=== PATIENT | male | born 1950 | race Caucasian/White ===

== ENCOUNTER → 2016-06-22 | Outpatient (CLI) | payer OTHER, MEDICARE ==
[~2016-06-22] VITALS: Ht 170.2 cm; Wt 117.0 kg
[~2016-06-22] MED LIST: ALEVE220 MG PO; ALPRAZOLAM 0.50.5 M1 PO; ALPRAZOLAM 0.50.5 MG PO; ASPIRIN81 M2 PO; BENICAR HCT 201 EACH PO; BYSTOLIC 5 MG5 M1; BYSTOLIC 5 MG5 M1 PO; CARVEDILOL25 MG PO; CIPROFLOXACIN500 M1 PO; COUMADIN 5 MG TA5 M1; COUMADIN7.5 MG PO; DESYREL50 MG PO; DICLOFENAC SODI75 M2 PO; DILAUDID1 MG/1 ML; DIURETIC RX; ENOXAPARIN100 MG/1 M INJECTION; ENOXAPARIN120 MG/0.1 SUBQ; FISH OIL 1,001000 M2; FLOMAX PO; FLONASE 0.05%50 MCG NASAL; FUROSEMIDE 40 M40 M1 PO; HYDROCODON-ACE1 EAC5 PO; IBUPROFEN 800800 MG PO; INTRATHECAL MED; KEFLEX500 MG PO; KLOR-CON 1010 MEQ PO; KLOR-CON M2020 MEQ PO; LEVAQUIN 500 M500 M2 PO; LISINOPRIL10 MG PO; LORTAB 5 MG/5001 TA1 PO; LUBRICANT EYE D15 M2 OPHTHALMIC; METHOCARBAMOL500 M1 PO; MORPHINE PAIN PUMP IMPLANT; MULTIVITAMINS PO; MULTIVITAMINS1 EAC7 PO; NORCO 5-325 TA1 EACH PO; OMEPRAZOLE40 MG PO; OXYCODONE-ACET1 EAC2 PO; OXYCODONE-ACET1 EACH PO; OXYCONTIN20 MG; PERCOCET 10-321 EACH PO; PERCOCET 5-3251 EACH PO; POTASSIUM GLUCO90 MG PO; PRILOSEC 20 MG20 MG PO; PROAIR HFA8.5 GM INH; RESTORIL15 MG PO; SILDENAFIL20 MG PO; SINGULAIR 10 MG10 M1 PO; STOOL SOFTENER1 EAC2 PO; SYMBICORT160 MCG/4. INH; SYNTHROID50 MCG PO; TAMSULOSIN HCL0.4 M1 PO; TAMSULOSIN HCL0.4 MG PO; TESTONE CI200 MG/1 M; TESTOSTERONE INJECT; TOPROL XL50 MG; TOPROL XL50 MG PO; TORSEMIDE20 MG PO; TRAMADOL 50 MG50 MG PO; TRIAMTERENE-HC1 EAC1 PO; TYLENOL P.M. E1 EAC3; VIACTIV TABLET1 EAC2 PO; VITAMINC500 PO; WARFARIN PO; [UNRECOGNIZED DRUG - SUPPLY]
--- NOTE | ~2016-06-22 | HPC ---
[facility] [place] [address] PAIN MANAGEMENT CONSULTATION Name: TAINA BIRCH Room #: [facility] [id number] Admission: 06/22/16 Attend Phys: Deep Morataya MD Discharge: Date of : 50 Report #: [id number] THIS REPORT FOR: //name// CC: Jase Morataya DATE OF SERVICE: 06/22/2016 The patient returns to the pain clinic today for refill of his intrathecal infusion pump. He has chronic low back pain and the medication has been helpful. He also complains of neuropathy in his lower extremities. He may have some component of radiculopathy as well since the pain radiates from his back down through his legs. He is not currently on an anti-seizure medication. He has a sleep study upcoming as well. He has sleep apnea and COPD as well as cor pulmonale. MEDICATIONS: Potassium, oxycodone one tablet for breakthrough pain use sparingly, albuterol, Symbicort, Singulair, Zestril, Coreg, Coumadin, multivitamins, stool softener, vitamin C, omeprazole, and Synthroid. ALLERGIES: TAPE, CONTRAST MEDIA. PHYSICAL EXAMINATION: He is obese, pleasant, alert and oriented. No signs of depression or anxiety. Blood pressure , heart rate 70, respirations 20. He is 5 feet, 7 inches, 258 pounds with a BMI of 40.4. Moves from sitting to standing position, ambulates without difficulty. MUSCULOSKELETAL: He has limited range of motion of the lumbar spine with localized tenderness. Straight leg raising bilaterally reproduces some discomfort in the legs with tightness. There is some decreased sensation in the lower extremities. IMPRESSION: 1. Chronic intractable low back pain with radiculopathy. 2. Management of intrathecal infusion pump. 3. Cor pulmonale. 4. Sleep apnea. 5. Obesity. PROCEDURE: Refill and reprogramming of intrathecal infusion pump. Skin was prepped with ChloraPrep. Skin anesthetized and a 22-gauge non-coring needle advanced in the pump. Old medication removed and discarded. Pump was refilled with 20 mL of a combination of bupivacaine and hydromorphone. [facility] [address] [place] [address] PAIN MANAGEMENT CONSULTATION Name: TAINA BIRCH Room #: REG [facility].#: [id number] Admission: 06/22/16 Attend Phys: Deep Morataya MD Discharge: Date of : 50 Report #: [id number] Reprogramming session was performed. Reprogramming of his next refill is scheduled due in 10/2016. <ELECTRONICALLY SIGNED> By: Deep Morataya MD 06/24/16 1329 1642 32 Deep Morataya MD /nt
[2016-06-22 14:30] VITALS: BP 162/92
== END ==
LOC: PAIN 07:42
DX: M54.10 Radiculopathy, site unspecified (principal); E66.9 Obesity, unspecified; Z87.891 Personal history of nicotine dependence

== ENCOUNTER → 2016-06-23 | Outpatient (CLI) | payer OTHER, MEDICARE ==
--- NOTE | ~2016-06-23 | SLE ---
[facility] [address] [place] [address] POLYSOMNOGRAPHY STUDY Name: TAINA BIRCH Room #: REG [facility]#: [id number] Admission: 06/23/16 Attend Phys: Jamarcus Ruffin MD Discharge: Date of : 50 Report #: [id number] THIS REPORT FOR: //name// CC: Jase Ruffin MD A 65-year-old, height 5 feet 7 inches, weight 250 pounds, not getting a good night sleep with CPAP. Usually goes to bed at 10:30, gets out of bed at 6:00 a.m., does not feel refreshed. Positive snoring and daytime somnolence. COMMENTS: CPAP TITRATION: Titrated at 10, 12, 13 and 14 cm water pressure. At 12 cm water pressure, the patient was seen for 99 minutes of which 15 minutes was in REM sleep, 6 central apnea, 2 hypopnea, apnea-hypopnea index of 4.8 events per sleep hour. Low oxygen saturation of 88%. IMPRESSION: 1. History of obstructive sleep apnea/hypopnea, G47.33. His study from 2013 had shown an apnea-hypopnea index of 31 events per sleep hour, low oxygen saturation 84%. 2. No significant arrhythmia noted. 3. CPAP improves index, however, does not totally correct events. SUGGESTIONS: 1. In addition to specific therapy, the patient should be cautioned regarding driving or operating dangerous machinery unless fully alert. The patient will be cautioned regarding the use of respiratory depressants. 2. Sleep hygiene measures recommended. 3. Oral appliance or appropriate surgery may be considered with appropriate followup. 4. An auto titrating CPAP between 10 and 16 cm water pressure is initially recommended. During our study, a medium Marco A 2 nasal mask was used with a chinstrap and heated humidity and C-Flex of 3. 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 5. If signs and symptoms not improved with therapy, further evaluation is recommended. Please do not hesitate to contact me if I may be of further assistance. <ELECTRONICALLY SIGNED> By: Bhavani Ziegler MD 06/28/16 1705 1757 1710 Bhavani Ziegler MD /nt
== END ==
LOC: SLEEPLAB 17:53
DX: G47.33 Obstructive sleep apnea (adult) (pediatric) (principal)

== ENCOUNTER → 2016-11-03 | Outpatient (CLI) | payer OTHER, MEDICARE ==
[~2016-11-03] VITALS: Ht 170.2 cm; Wt 122.1 kg
[~2016-11-03] MED LIST changes: +ALBUTEROL2.5 MG/31 INH; +AMLODIPINE BESY10 MG PO; +COUMADIN 1MG TAB1 M1 PO; +FINASTERIDE5 MG PO; +FISH OIL 1,2001 EAC6 PO; +HYDROCODONE-AP1 EAC6 PO; +K-DUR 20 MEQ T20 MEQ PO; +PERFOROMIS20 MCG/2 M IH; -TESTONE CI200 MG/1 M; +TESTONE CI200 MG/1 M IM; +XANAX 0.25 MG0.25 MG PO
--- NOTE | ~2016-11-03 | HPC ---
[facility] [address] [place] [address] PAIN MANAGEMENT CONSULTATION Name: TAINA BIRCH Room #: REG SUSHMA CarolinaRubi#: [id number] Admission: 11/03/16 Attend Phys: Deep Morataya MD Discharge: Date of : 50 Report #: [id number] THIS REPORT FOR: //name// CC: Jase Morataya DATE OF SERVICE: 11/03/2016 Followup visit for management of intrathecal infusion pump. The patient returns to pain clinic today for refill of his intrathecal infusion pump. He is doing well. He has some comorbidities including sleep apnea, obesity and cor pulmonale. He has been treated also for increasing edema of his lower extremities. Overall, however, his pain is well controlled and he uses only a small amount of supplementary oxycodone. A single prescription for 60 tablets lasted 240 days, so uses no more than 1 tablet every 4 days as breakthrough. Today, he reports that his pain is good. He is here only for his refill. No other new symptoms. Pain is mostly in his neck, arms and low back. PHYSICAL EXAMINATION: BMI is 42.2, blood pressure is 174/94, heart rate 71, respirations 18. Moves from a sitting to standing position. He ambulates with a mild antalgic features. He has pain across his low back and tenderness. Straight leg raising bilaterally is negative. No focal weakness. There is 1+ edema of the lower extremities. IMPRESSION: 1. Chronic low back pain with radiculopathy. 2. Management of intrathecal infusion pump. 3. Cor pulmonale. 4. Sleep apnea. 5. Morbid obesity. PROCEDURE: Refill and reprogramming of intrathecal pump. Skin was prepped with ChloraPrep, skin anesthetized. A 20-gauge non-coring needle advanced in the pump. Old medication removed and discarded. Pump refilled with a combination of hydromorphone, bupivacaine, and clonidine. We reprogrammed the pump. The concentration of hydromorphone and bupivacaine remained the same. Unfortunately, we neglected to add the clonidine to his programming information. I will change that and will let him know at his next followup visit. He will be receiving 25 mcg of clonidine per day, new drug for lower extremity neuropathy. [address] [address] PAIN MANAGEMENT CONSULTATION Name: TAINA BIRCH BAH Room #: REG [facility] Avril#: [id number] Admission: 11/03/16 Attend Phys: Deep Moartaya MD Discharge: Date of : 50 Report #: [id number] Followup visit is scheduled in 3 months. By: 1253 [id number] Deep Morataya MD /nt
[2016-11-03 09:53] VITALS: BP 174/94
== END ==
LOC: PAIN 06:59
DX: Z45.1 Encounter for adjustment and management of infusion pump (principal); I27.81 Cor pulmonale (chronic); E66.01 Morbid (severe) obesity due to excess calories; Z68.41 Body mass index [BMI] 40.0-44.9, adult; Z79.01 Long term (current) use of anticoagulants; Z87.891 Personal history of nicotine dependence

== ENCOUNTER → 2016-11-17 | Outpatient (CLI) | payer OTHER, MEDICARE | LOC: ULTRA 09:45 | DX: I70.213 Atherosclerosis of native arteries of extremities with intermittent claudication, bilateral legs (principal); I99.8 Other disorder of circulatory system ==

== ENCOUNTER 2017-01-23 11:55 | Inpatient (IN) | payer OTHER, MEDICARE ==
[~2017-01-23] VITALS: Ht 172.7 cm; Wt 113.4 kg
[2017-01-23 11:55] VITALS: BP 181/90
[2017-01-23 12:58] LABS: MCH 26.8 pg (26.0-34.0); MCHC 33.3 g/dL (28.0-37.0); MCV 80.3 fL (80.0-100.0); PLATELET COUNT 218 thou/uL (150-400); RBC 4.86 mil/uL (4.50-6.00); RDW 19.1 % (10.5-14.5)
[2017-01-23 13:06] LABS: CALCIUM 8.9 mg/dL (8.5-10.1); CREATININE 0.9 mg/dL (0.7-1.3); POTASSIUM 4.7 mmol/L (3.5-5.1)
[2017-01-23 13:07] LABS: MANUAL DIFF YES
[2017-01-23 13:12] LABS: ALBUMIN 3.8 g/dL (3.4-5.0); INR 2.1; PROTIME 20.8 Seconds (9.3-11.4); TOTAL BILIRUBIN 0.4 mg/dL (<0.1-1.0); TOTAL PROTEIN 8.5 g/dL (6.4-8.2)
[2017-01-23 13:39] LABS: ABSOLUTE NEUTROPHILS 14.2 thou/uL (1.4-8.2); PLATELET ESTIMATE NORMAL; TOTAL CELL COUNT 100
[2017-01-23 14:31] VITALS: BP 155/75
[2017-01-23 14:40] VITALS: BP 144/73
[2017-01-23 15:15] VITALS: BP 164/74
[2017-01-23 19:45] VITALS: BP 115/58
[2017-01-24 03:43] VITALS: BP 119/59
[2017-01-24 08:45] VITALS: BP 119/54
[2017-01-24 16:27] VITALS: BP 134/60
[2017-01-24 19:22] VITALS: BP 118/63
[2017-01-24 19:45] VITALS: BP 135/81
[2017-01-25 03:22] VITALS: BP 114/58
[2017-01-25] MEDS ORDERED: CEFDINIR300 MG PO (07:49)
[2017-01-25 08:00] VITALS: BP 117/69
[2017-01-25 11:32] VITALS: BP 117/69
[2017-01-25 12:36] VITALS: BP 117/69
== END 2017-01-25 12:51 | disposition home or self-care (01) | DRG 872 ==
LOC: ER 11:55 → EROBS 14:12 → 4S 14:12
PROVIDERS: Physician Assistant
DX: A41.9 Sepsis, unspecified organism (principal); L03.116 Cellulitis of left lower limb; I10 Essential (primary) hypertension; K21.9 Gastro-esophageal reflux disease without esophagitis; I27.2 Other secondary pulmonary hypertension; Z96.653 Presence of artificial knee joint, bilateral; G89.4 Chronic pain syndrome; E66.9 Obesity, unspecified; Z68.38 Body mass index [BMI] 38.0-38.9, adult; Z87.891 Personal history of nicotine dependence; Z85.828 Personal history of other malignant neoplasm of skin; Z90.49 Acquired absence of other specified parts of digestive tract; Z87.01 Personal history of pneumonia (recurrent); Z86.711 Personal history of pulmonary embolism; Z86.718 Personal history of other venous thrombosis and embolism; Z87.828 Personal history of other (healed) physical injury and trauma; Z79.01 Long term (current) use of anticoagulants; Z79.899 Other long term (current) drug therapy; Z91.041 Radiographic dye allergy status; Z91.048 Other nonmedicinal substance allergy status
CPT/HCPCS: 10102

== ENCOUNTER → 2017-03-20 | Outpatient (CLI) | payer OTHER, MEDICARE ==
[~2017-03-20] VITALS: Ht 170.2 cm; Wt 122.5 kg
[~2017-03-20] MED LIST changes: +CEFDINIR300 MG PO; +PERCOCET PO
--- NOTE | ~2017-03-20 | HPC ---
[facility] [address] [address] PAIN MANAGEMENT CONSULTATION Name: TAINA BIRCH Room #: REG [facility] Caity.#: [id number] Admission: 03/20/17 Attend Phys: Deep Morataya MD Discharge: Date of : 50 Report #: [id number] THIS REPORT FOR: //name// CC: Russell Morataya DATE OF SERVICE: 03/20/2017 DATE OF SERVICE: 03/20/2017 Followup visit for low back pain with radiculopathy. HISTORY OF PRESENT ILLNESS: The patient is in the clinic today and he has significant bilateral peripheral edema. We have talked in the past about perhaps transitioning him off of hydromorphone in his intrathecal pump to fentanyl. I have recently had a patient with similar findings and responded very nicely to transition off of morphine-based drug. Edema, which is a possible side effect of these intrathecal opioids, occurs in about 15% on my estimation. He is reporting that they are interventional treatments including possibly some venous studies and surgery. I am not exactly sure what is planned, but before going forward with that surgery, I would recommend that we make the change as soon as possible. He has also had cor pulmonale sleep apnea and has been undergoing pulmonary rehabilitation at [facility]. His pain control has been good, so hopefully we can maintain that with the intrathecal pump while evaluating for side effects. PHYSICAL EXAMINATION: VITAL SIGNS: Blood pressure 158/77, heart rate 74, respirations 18. He is dyspneic on exertion. His oxygen saturation at rest is 97%. BMI is 42. CHEST: Clear. EXTREMITIES: Bilateral 3+ to 4+ lower extremity edema is noted. IMPRESSION: 1. Chronic low back pain with radiculopathy. 2. Management of intrathecal infusion pump. He may be having side effects from his intrathecal hydromorphone with bilateral peripheral edema. 3. Cor pulmonale. 4. Sleep apnea. 5. Morbid obesity. PLAN: I will refill his pump today with medication we have available, order new medication, which we hope to have in the pump within one week. We will then [facility] [address] [place] [address] PAIN MANAGEMENT CONSULTATION Name: TAINA BIRCH Room #: REG Adonis Mackenzie#: [id number] Admission: 03/20/17 Attend Phys: Deep Morataya MD Discharge: Date of : 50 Report #: [id number] evaluate and titrate fentanyl to effect. PROCEDURE: Skin was prepped with ChloraPrep, skin anesthetized and a 22-gauge non-coring needle advanced in the pump. Old medication removed and discarded. Pump was then refilled with a combination of hydromorphone, clonidine and bupivacaine. Reprogramming session was performed without change in daily dose, which is hydromorphone 2.5, bupivacaine 2.5 and clonidine 25. New medication is ordered to transition from hydromorphone 2.5 to fentanyl 125 mcg per day. We may need to adjust this dose upwards to get similar opioid effects. This should be a relatively low dose in comparison. Followup visit planned in 1 week. Time spent in consultation was 25 minutes. By: 1241 1517 Deep Morataya MD /nt
[2017-03-20 10:33] VITALS: BP 158/77
== END ==
LOC: PAIN 07:25
DX: Z45.1 Encounter for adjustment and management of infusion pump (principal); Z68.41 Body mass index [BMI] 40.0-44.9, adult; M54.10 Radiculopathy, site unspecified; E66.01 Morbid (severe) obesity due to excess calories

== ENCOUNTER → 2017-03-27 | Outpatient (CLI) | payer OTHER, MEDICARE ==
[~2017-03-27] VITALS: Ht 172.7 cm; Wt 122.5 kg
[~2017-03-27] MED LIST changes: +PROSCAR 5MG TABL5 MG PO
--- NOTE | ~2017-03-27 | HPC ---
[facility] [address] [place] [address] PAIN MANAGEMENT CONSULTATION Name: TAINA BIRCH Room #: REG SUSHMA MadhuSumanRubi#: [id number] Admission: 03/27/17 Attend Phys: Deep Morataya MD Discharge: Date of : 50 Report #: [id number] THIS REPORT FOR: //name// CC: Russell Morataya DATE OF SERVICE: 03/27/2017 Followup visit for management of intrathecal infusion pump. The patient is here today for changing out his intrathecal medications. He has severe lower extremity edema and we have raised a question of whether or not the intrathecal hydromorphone is the cause. Morphine is usually implicated, hydromorphone has been implicated in some patients. We have had good success in helping with edema by transitioning to fentanyl and is here today to do that. Medication has been ordered. We will keep him on similar doses of bupivacaine and clonidine, but we will discontinue his hydromorphone and start him on fentanyl 150 mcg per day. I elected today to begin at higher dose, so we will not go through withdrawal. We will plan that he can use oral medications if he finds that there is any sort of opioid withdrawal with this transition. PHYSICAL EXAMINATION: There have been no changes in 1 week. His blood pressure is 135/88, heart rate is 80, respirations 16. He has 3+ edema of the lower extremities. IMPRESSION: 1. Chronic intractable low back pain with radiculopathy. 2. Management of intrathecal infusion pump. 3. Cor pulmonale. 4. Sleep apnea. 5. Morbid obesity. 6. Peripheral edema, possibly secondary to intrathecal hydromorphone. PROCEDURE: Skin was prepped with ChloraPrep. Skin anesthetized and a 22-gauge non-coring needle advanced in the pump. Old medication was removed and discarded appropriately. The pump was then refilled with fentanyl, bupivacaine and clonidine and new daily doses were reprogrammed into the pump including a bridge bolus. At the conclusion of 96 hours, his new drug will be fentanyl 150 mcg per day, bupivacaine 3 mg a day, clonidine ____ mcg per day. The reservoir alarm will allow for 91 days. We will be discussing this with him on the phone. By: 1401 1445 Deep Morataya MD /nt
[2017-03-27 08:05] VITALS: BP 154/85
== END | disposition home or self-care (01) ==
LOC: PAIN 06:55
DX: Z45.1 Encounter for adjustment and management of infusion pump (principal); E66.01 Morbid (severe) obesity due to excess calories; R60.9 Edema, unspecified; Z87.891 Personal history of nicotine dependence

== ENCOUNTER → 2017-05-18 | Outpatient (CLI) | payer OTHER, MEDICARE ==
[~2017-05-18] VITALS: Ht 172.7 cm; Wt 122.7 kg
[~2017-05-18] MED LIST changes: +CYCLOBENZAPRINE5 MG PO; +DILAUDID1 MG/1 ML IV PUSH
--- NOTE | ~2017-05-18 | HPC ---
[facility] [address] [place] [address] PAIN MANAGEMENT CONSULTATION Name: TAINA BIRCH Room #: REG SUSHMA Avril#: [id number] Admission: 05/18/17 Attend Phys: Deep Morataya MD Discharge: Date of : 50 Report #: [id number] THIS REPORT FOR: //name// CC: Jase Morataya DATE OF SERVICE: 05/18/2017 Followup visit for chronic back pain, post-laminectomy syndrome and management of intrathecal infusion pump. The patient returns to the pain clinic today for renewal of his intrathecal infusion pump and refill. We have been managing his medications differently with the hopes of eliminating some of his edema in the lower extremities. We have had some improvement. Today we plan to decrease his bupivacaine and increase his clonidine in hopes to eliminate some of the neuropathic symptoms. PHYSICAL EXAMINATION: GENERAL: He is pleasant and outgoing. Breathing is easy. CHEST: Clear. CARDIAC: Rhythm is regular. VITAL SIGNS: Blood pressure 154/86, heart rate 70 and respirations 20. MUSCULOSKELETAL: He has tenderness across his low back with pain on flexion and extension. Straight leg raising reproduces some mild pain into the legs. Bilateral numbness is noted. 2-3+ edema bilateral lower extremities. IMPRESSION: 1. Chronic low back pain with radiculopathy. 2. Management of intrathecal infusion pump. 3. Peripheral edema with cor pulmonale. 4. Morbid obesity. PROCEDURE: Refill and reprogram intrathecal infusion pump. Skin was prepped with ChloraPrep. Skin anesthetized and a 22-gauge non-coring needle advanced in the pump. Old medication removed and discarded. Pump was then refilled with a combination of bupivacaine, clonidine and fentanyl. Reprogramming will provide for 225 mcg of fentanyl, 300.3 of bupivacaine and 45 mcg of clonidine. A bridge bolus was performed which will last 31 hours. Plan to see him back in the pain clinic in 77 days before 08/03/2017. By: 1023 0212 Deep Morataya MD /nt
[2017-05-18 10:08] VITALS: BP 154/86
== END | disposition home or self-care (01) ==
LOC: PAIN 05-15 15:04
DX: Z45.1 Encounter for adjustment and management of infusion pump (principal); M54.16 Radiculopathy, lumbar region; G89.29 Other chronic pain; M96.1 Postlaminectomy syndrome, not elsewhere classified; I27.81 Cor pulmonale (chronic); E66.01 Morbid (severe) obesity due to excess calories; Z87.891 Personal history of nicotine dependence; Z91.041 Radiographic dye allergy status; Z79.01 Long term (current) use of anticoagulants; Z79.891 Long term (current) use of opiate analgesic; Z79.899 Other long term (current) drug therapy

== ENCOUNTER 2017-05-21 12:54 | Inpatient (IN) | payer OTHER, MEDICARE ==
[~2017-05-21] VITALS: Ht 170.2 cm; Wt 120.2 kg
--- NOTE | ~2017-05-21 | EKG ---
[address] [place] [address] ELECTROCARDIOGRAM REPORT Name: TAINA BIRCH [facility] #: [facility] [id number] Admission: 05/21/17 Attend Phys: Discharge: Date of : 50 Report #: [id number] THIS REPORT FOR: //name// [facility] ED Test Date: 2017-05-21 Test Time: 13:33:41 Pat Name: TAINA BIRCH Department: Room: Gender: M Rabbit Breeder: [id number] : 1950 Requested By: Evelyn Okeefe Order Number: [id number] MD: Deonte Bhandari Measurements Intervals [place] Rate: 79 P: 56 SC: 160 QRS: -1 QRSD: 99 T: 9 QT: 382 QTc: 438 Interpretive Statements Sinus rhythm Probable left atrial enlargement Nonspecific T abnormalities, anterior leads Compared to ECG 09/24/2016 21:50:21 T-wave abnormality now present Myocardial infarct finding no longer present Electronically Signed On 05-21-2017 16:11:56 LICENSED OPTICIAN by Deonte Bhandari [email or web address] <ELECTRONICALLY SIGNED> By: Deonte Bhandari MD 05/21/17 1611 1333 1333 Deonte Bhandari MD /RAD
[~2017-05-21 12:54] MED LIST changes: -CYCLOBENZAPRINE5 MG PO; -DILAUDID1 MG/1 ML IV PUSH
[2017-05-21 13:02] VITALS: BP 193/112
[2017-05-21] MEDS ORDERED: DILAUDID1 MG/1 ML IV PUSH (13:11)
[2017-05-21 13:33] LABS: HEMATOCRIT 41.2 % (42.0-52.0); HEMOGLOBIN 13.4 gm/dL (14.0-18.0); MCHC 32.4 g/dL (28.0-37.0); MCV 83.2 fL (80.0-100.0); PLATELET COUNT 264 thou/uL (150-400); RBC 4.95 mil/uL (4.50-6.00); RDW 14.7 % (10.5-14.5)
[2017-05-21 13:36] LABS: ANION GAP 4 mmol/L (7-16); BUN 8 mg/dL (7-18); CALCIUM 9.2 mg/dL (8.5-10.1); CHLORIDE 100 mmol/L (98-107); CO2 27 mmol/L (21-32); CREATININE 0.7 mg/dL (0.7-1.3); GLUCOSE 130 mg/dL (74-106); POTASSIUM 3.6 mmol/L (3.5-5.1); SODIUM 131 mmol/L (136-145)
[2017-05-21 13:37] LABS: MANUAL DIFF YES
[2017-05-21 13:45] LABS: TROPONIN-I < 0.04 ng/mL (<0.06)
[2017-05-21 13:52] LABS: ABSOLUTE NEUTROPHILS 11.8 thou/uL (1.4-8.2); PLATELET ESTIMATE NORMAL; TOTAL CELL COUNT 100
[2017-05-21 13:55] LABS: URINE BILIRUBIN NEGATIVE (Negative); URINE BLOOD TRACE (Negative); URINE COLOR YELLOW; URINE GLUCOSE-RANDOM* NEGATIVE (Negative); URINE KETONES NEGATIVE (Negative); URINE LEUKOCYTES-REFLEX NEGATIVE (Negative); URINE PROTEIN (DIPSTICK) NEGATIVE (Negative); URINE SPECIFIC GRAVITY <= 1.005 (1.005-1.035); URINE UROBILINOGEN 0.2 E.U./dl (0.2-1.0)
[2017-05-21 14:13] LABS: INR 1.2; PROTIME 12.7 Seconds (9.3-11.4)
[2017-05-21 16:38] VITALS: BP 172/85
[2017-05-21 16:58] VITALS: BP 166/83
[2017-05-21 17:34] VITALS: BP 169/92
[2017-05-21 19:08] VITALS: BP 158/93
[2017-05-22 03:51] VITALS: BP 164/76
[2017-05-22 07:15] VITALS: BP 179/102
[2017-05-22 10:36] LABS: MCH 26.9 pg (26.0-34.0); MCHC 32.4 g/dL (28.0-37.0); RBC 4.83 mil/uL (4.50-6.00); RDW 14.6 % (10.5-14.5); WBC 11.8 thou/uL (4.0-11.0)
[2017-05-22 15:35] VITALS: BP 161/100
[2017-05-22 19:29] VITALS: BP 162/89
[2017-05-23 04:15] VITALS: BP 148/85
[2017-05-23] MEDS ORDERED: CYCLOBENZAPRINE5 MG PO (07:32)
[2017-05-23 07:35] VITALS: BP 164/89
[2017-05-23 14:39] VITALS: BP 164/89
== END 2017-05-23 15:20 | disposition home or self-care (01) | DRG 896 ==
LOC: ER 12:54 → 4E 15:40 → EROBS 15:40 → ER 17:00 → 4E 17:29 → ENTRNSPT 05-23 15:13 → EDTRNSPTSTS 05-23 15:16 → 4E 05-23 15:20
PROVIDERS: Emergency Medicine; Family Medicine
DX: F19.939 Other psychoactive substance use, unspecified with withdrawal, unspecified (principal); E43 Unspecified severe protein-calorie malnutrition; Z68.41 Body mass index [BMI] 40.0-44.9, adult; M54.2 Cervicalgia; F11.23 Opioid dependence with withdrawal; Z96.653 Presence of artificial knee joint, bilateral; I10 Essential (primary) hypertension; K21.9 Gastro-esophageal reflux disease without esophagitis; E66.9 Obesity, unspecified; I27.20 Pulmonary hypertension, unspecified; G25.81 Restless legs syndrome; D72.829 Elevated white blood cell count, unspecified; G89.4 Chronic pain syndrome; G62.9 Polyneuropathy, unspecified; Z87.891 Personal history of nicotine dependence; Z91.041 Radiographic dye allergy status; Z88.8 Allergy status to other drugs, medicaments and biological substances; Z79.899 Other long term (current) drug therapy; Z86.718 Personal history of other venous thrombosis and embolism; Z86.711 Personal history of pulmonary embolism; Z90.49 Acquired absence of other specified parts of digestive tract; Z87.01 Personal history of pneumonia (recurrent)
CPT/HCPCS: 10783

== ENCOUNTER → 2017-07-10 | Outpatient (CLI) | payer OTHER, MEDICARE ==
[~2017-07-10] MED LIST changes: +BETAMETHASONE D15 G6 TOP; +CYCLOBENZAPRINE5 MG PO; +DILAUDID1 MG/1 ML IV PUSH; +LUNESTA1 MG PO; +NORVASC10 MG PO; +REQUIP 1 MG TABL1 M1 PO; +SPIRIVA INH
== END ==
LOC: RAD 10:14
DX: M81.8 Other osteoporosis without current pathological fracture (principal); G47.33 Obstructive sleep apnea (adult) (pediatric)

== ENCOUNTER → 2017-08-03 | Outpatient (CLI) | payer OTHER, MEDICARE ==
[~2017-08-03] VITALS: Ht 170.2 cm; Wt 120.8 kg
--- NOTE | ~2017-08-03 | HPC ---
[facility] [place] [address] PAIN MANAGEMENT CONSULTATION Name: TAINA BIRCH Room #: REG SUSHMA Avril#: [id number] Admission: 08/03/17 Attend Phys: Deep Morataya MD Discharge: Date of : 50 Report #: [id number] THIS REPORT FOR: //name// CC: Jase Morataya DATE OF SERVICE: 08/03/2017 Followup visit for management of intrathecal infusion pump with chronic back pain related to post-laminectomy syndrome. The patient is here today for followup. His last refill was on 05/18/2018. He has a combination of bupivacaine, clonidine and fentanyl in his pump. We have transitioned him to fentanyl due to peripheral edema and he is doing a bit better. He continues to have some edema in the lower extremities, which is being managed also by primary care and Cardiology. Today, he feels that his medication is adequate. We will make no changes in his daily dose. Discharge dosing will be described below. PQRS review is completed. He has hypertension and significant cardiopulmonary issues. He is followed by a primary care, Dr. Jase Hi who manages his medication. He is overweight with a BMI of 41.7 and is working hard to try and control his fluids and diet. 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 He takes a small amount of systemic opioids supplement in his intrathecal pump and I have completed an opioid risk tool and functional assessment as well as had him sign an opioid agreement. He has shown no misuse or abuse and understands his responsibilities. He is not currently a fall risk. PHYSICAL EXAMINATION: Blood pressure 152/95, heart rate 75, respirations 16. BMI is 41.7. He walks with antalgic features. He has pain across his low back. He has decreased sensation bilaterally in the lower extremities consistent with post-laminectomy syndrome and sciatica. He has tenderness there as well. There is pain overlying the scar. The pump is in the right lower quadrant, nontender. IMPRESSION: 1. Chronic low back pain with radiculopathy. 2. Management of intrathecal infusion pump. 3. Peripheral edema. 4. History of cor pulmonale. 5. Morbid obesity. PLAN: Refill and reprogramming of intrathecal infusion pump. PROCEDURE: Skin was prepped with ChloraPrep. Skin was anesthetized with 22-gauge non-coring needle advanced in the pump. Old medication removed and [facility] [address] [place] [address] PAIN MANAGEMENT CONSULTATION Name: QUETATAINA NIURKA [facility] [id number] Admission: 08/03/17 Attend Phys: Deep Morataya MD Discharge: Date of : 50 Report #: [id number] discarded. Pump was refilled with a combination of fentanyl, bupivacaine and clonidine and reprogrammed. His discharge numbers will be as follows: Fentanyl 225 mcg per day, bupivacaine 3.3 mg per day, clonidine 45 mcg per day. His low reservoir alarm date is 10/19/2017 and he has an NEAL of 28 months. We discussed replacement of the pump in about 2 years. In addition to his pump medications, he uses over the course of 3 months about 90 oxycodone tablets 10/325, this is MME of 15 mg per day. He uses it sparingly and cautiously with no significant side effects, understands the importance of safeguarding all medications. Followup visit planned in the pain clinic in 2-3 months. <ELECTRONICALLY SIGNED> By: Deep Morataya MD 08/16/17 1640 0954 1126 Deep Morataya MD /nt
[2017-08-03 10:04] VITALS: BP 152/95
== END | disposition home or self-care (01) ==
LOC: PAIN 07:09
DX: Z45.1 Encounter for adjustment and management of infusion pump (principal); M96.1 Postlaminectomy syndrome, not elsewhere classified; I10 Essential (primary) hypertension; I42.9 Cardiomyopathy, unspecified; Z68.41 Body mass index [BMI] 40.0-44.9, adult; E66.01 Morbid (severe) obesity due to excess calories; G89.29 Other chronic pain; M54.10 Radiculopathy, site unspecified; Z87.891 Personal history of nicotine dependence

== ENCOUNTER → 2017-10-02 | Outpatient (CLI) | payer OTHER, MEDICARE ==
[~2017-10-02] VITALS: Ht 170.2 cm; Wt 117.9 kg
[~2017-10-02] MED LIST changes: -LUNESTA1 MG PO; -SPIRIVA INH
--- NOTE | ~2017-10-02 | EKG ---
[address] [place] [address] ELECTROCARDIOGRAM REPORT Name: TAINA BIRCH Room #: REG CLI [facility]#: [id number] Admission: 10/02/17 Attend Phys: Deonte Suarez MD Discharge: Date of : 50 Report #: [id number] THIS REPORT FOR: //name// [facility] Test Date: 2017-10-02 Test Time: 06:58:43 Pat Name: TAINA BIRCH Department: Room: Gender: Regulatory Attorney: Drew COPELAND : 1950 Requested By: Deonte Suarez Order Number: [id number] MD: Marcio Oconnor Measurements Intervals [place] Rate: 82 P: 54 OK: 168 QRS: 4 QRSD: 113 T: 0 QT: 375 QTc: 438 Interpretive Statements Sinus rhythm Atrial premature complex Nonspecific T abnrm, anterolateral leads Compared to ECG 05/21/2017 13:33:41 Atrial premature complex(es) now present Electronically Signed On 10-02-2017 8:13:59 CDT by Marcio Oconnor [email or web address] <ELECTRONICALLY SIGNED> By: Marcio Oconnor MD, [facility] 10/02/17812 0658 Marcio Oconnor MD, [facility] /EPI
--- NOTE | ~2017-10-02 | CATHLAB ---
[facility] [address] [place] [place] [address] INVASIVE PROCEDURE REPORT Name: SEGUNTUANTAINA NIURKA Room #: REG [facility]Rubi[facility] [id number] Admission: 10/02/17 Attend Phys: Deonte Suarez MD Discharge: Date of : 50 Date of Service: 10/02/17 [facility] [place][note 2] Report #: [id number] THIS REPORT FOR: //name// APPROVED REPORT Study performed: 10/02/2017 08:25:46 Patient Details Patient Status: Out-Patient Room #: The patient is a 66 year-old male Event Personnel Deonte Suarez Procedures Nurse, Jimenez Salinas RN, Kimberley Salamanca Scrjeff Procedures Performed Left Heart Cath w/or w/o Coronaries [id number] [facility] Indication Dyspnea, Chest pain Risk Factors Obesity, Chronic Lung DiseaseHypercholesterolemiaPhysical Activity, Hypertension Procedure Narrative The Right Groin^ was infiltrated with 1% Lidocaine subcutaneous anesthesia. A PINNACLE 4FR Sheath #[id number] sheath was inserted into the RFA^. Coronary angiography was performed using coronary diagnostic catheters. The right coronary system was accessed and visualized with a JR4 catheter. The left coronary system was accessed and visualized with a JL5 catheter. The left ventricle was accessed and visualized with a PIGTAIL catheter. Left ventricular/Aortic Valve gradient assessed via catheter pullback. Left ventriculogram was performed in 30 degree projection. Hemostasis was obtained with manual pressure following sheath removal without any complications. There was no hematoma. Intraoperative Conscious Sedation Sedation start time: 8.56 Case end Time: 9.16 Fluoro Time: 2.07 minutes Dose: 738 mGy Contrast Type and Amount: Omnipaque [address] [facility] [address] [place] [address] INVASIVE PROCEDURE REPORT Name: SEGUNTAINA DICKERSON Room #: REG [facility] [id number] Admission: 10/02/17 Attend Phys: Deonte Suarez MD Discharge: Date of : 50 Date of Service: 10/02/17 [facility] [place][note 2] Report #: [id number] Coronary Angiography The patient's coronary anatomy is left dominant. Diagnostic Cath Left Main patent vessel, with no flow-limiting lesions. LAD Moderate size caliber vessel, traveling down the anterior wall and wrapping around the apex. There is a moderate stenosis in the proximal segment, 40-50%. Diagonal 1 Mild disease at the ostium, 30%. Circumflex Patent vessel, supplies 2 OM vessels. OM1 There is mild disease in the proximal segment, 20%. OM2 Patent vessel, with no flow-limiting lesion. Right Coronary Dominant vessel with mild disease in the proximal segment, 20%. R PDA Patent vessel, with no flow-limiting lesion. RPLV Patent vessel, with no flow-limiting lesion. Left Ventriculography The left ventricle is normal in size with normal contractility. The left ventricular ejection fraction is estimated to be 60%. Hemodynamics The aortic pressure is 149/85 mmHg with a mean of 113 mmHg. The left ventricular pressure is 158/17 mmHg with a mean of mmHg. The left ventricular end diastolic pressure is 30 mmHg. Conclusion 1. Nonobstructive coronary artery disease in LAD and RCA. 2. Normal LV systolic function. 3. Recommend risk factor management. <ELECTRONICALLY SIGNED> By: Deonte Suarez MD 10/02/17 1007 1007 1007 Deonte Suarez MD /INF
[2017-10-02 07:14] VITALS: BP 150/81
[2017-10-02 07:53] LABS: PROTIME 10.7 Seconds (9.3-11.4)
== END | disposition home or self-care (01) ==
LOC: CATH 06:32
PROVIDERS: Internal Medicine Cardiovascular Disease
DX: I25.10 Atherosclerotic heart disease of native coronary artery without angina pectoris (principal); I10 Essential (primary) hypertension; I42.9 Cardiomyopathy, unspecified; E78.00 Pure hypercholesterolemia, unspecified; J44.9 Chronic obstructive pulmonary disease, unspecified; K21.9 Gastro-esophageal reflux disease without esophagitis; I73.89 Other specified peripheral vascular diseases; E66.09 Other obesity due to excess calories; Z95.5 Presence of coronary angioplasty implant and graft; Z85.828 Personal history of other malignant neoplasm of skin; Z96.653 Presence of artificial knee joint, bilateral; Z90.49 Acquired absence of other specified parts of digestive tract; Z82.49 Family history of ischemic heart disease and other diseases of the circulatory system; Z87.891 Personal history of nicotine dependence; Z79.01 Long term (current) use of anticoagulants; Z79.899 Other long term (current) drug therapy; Z79.891 Long term (current) use of opiate analgesic; Z98.890 Other specified postprocedural states; Z91.040 Latex allergy status; Z86.718 Personal history of other venous thrombosis and embolism

== ENCOUNTER → 2017-10-05 | Outpatient (CLI) | payer OTHER, MEDICARE ==
[~2017-10-05] VITALS: Ht 170.2 cm; Wt 117.9 kg
--- NOTE | ~2017-10-05 | HPC ---
[facility] [address] [place] [address] PAIN MANAGEMENT CONSULTATION Name: TAINA BIRCH Room #: REG [facility] BárbaraRubiSuman.#: [id number] Admission: 10/05/17 Attend Phys: Deep Morataya MD Discharge: Date of : 50 Report #: [id number] THIS REPORT FOR: //name// CC: Jase Morataya DATE OF SERVICE: 10/05/2017 Followup visit for chronic back pain and cervicalgia with intrathecal pump for chronic management. The patient returns to Pain Clinic today and pleased to report that the increase of 30% in his infusion has made a big difference. His pain is much improved. We plan to refill his intrathecal pump today, continue with the same rate. We may consider increasing the concentrations of his medication for subsequent refills. His interval between refills will now be close to 60 days. We should be able to extend that somewhat safely without compromising ratios and solubilities. We recently changed medication cocktail to fentanyl in order to try and eliminate edema. We have not completely eliminated, but it has much improved. PHYSICAL EXAMINATION: Blood pressure is 135/88, heart rate is 80. He is able to move independently from sitting to standing position, ambulate without much difficulty. He is morbidly obese with BMI over 35. He has tenderness across his low back. Pain with forward flexion and extension. IMPRESSION: 1. Chronic intractable back pain. 2. Intrathecal infusion pump infusing fentanyl, bupivacaine, and clonidine, for refill. PROCEDURE: Refill and reprogramming of intrathecal infusion pump. The skin was prepped with ChloraPrep and anesthetized and a 22-gauge non-coring needle advanced in the intrathecal pump. Old medication was expected at 4.7 mL and we retrieved exactly that. The pump was then refilled with a combination of fentanyl, bupivacaine, clonidine and a daily dose will be as follows, fentanyl 300 mcg, bupivacaine 4.5 mg, and clonidine mcg. Refill interval is now 58 days. Next pump alarm is due on 11/23/2015. We will have him back before that date. Regarding PQRS review, he is not currently receiving other opioids from us and does not have an opioid agreement. All medications were reviewed and [facility] [address] [place] [address] PAIN MANAGEMENT CONSULTATION Name: TAINA BIRCH [facility] [id number] Admission: 10/05/17 Attend Phys: Deep Morataya MD Discharge: Date of : 50 Report #: [id number] reconciled. He is not a fall risk. He does not smoke. He denies use of alcohol. He is on no blood thinners. He has been hypertensive and his blood pressure medication Norvasc has been increased from 5 mg to 10 mg per day. Followup visit for refill in 2 months. By: 1332 24 Deep Morataya MD /nt
[2017-10-05 13:07] VITALS: BP 155/82
== END | disposition home or self-care (01) ==
LOC: PAIN 06:33
DX: Z45.1 Encounter for adjustment and management of infusion pump (principal); E66.01 Morbid (severe) obesity due to excess calories; Z68.35 Body mass index [BMI] 35.0-35.9, adult; Z79.899 Other long term (current) drug therapy; Z87.891 Personal history of nicotine dependence; Z79.01 Long term (current) use of anticoagulants

== ENCOUNTER → 2017-11-30 | Outpatient (CLI) | payer OTHER, MEDICARE ==
[~2017-11-30] VITALS: Ht 170.2 cm; Wt 118.0 kg
[~2017-11-30] MED LIST changes: +LUNESTA1 MG PO
--- NOTE | ~2017-11-30 | HPC ---
[facility] [place] [address] PAIN MANAGEMENT CONSULTATION Name: TAINA BIRCH Room #: REG [facility] Caity.#: [id number] Admission: 11/30/17 Attend Phys: Deep Morataya MD Discharge: Date of : 50 Report #: [id number] THIS REPORT FOR: //name// CC: Jase Morataya DATE OF SERVICE: 11/30/2017 REASON FOR VISIT: Followup visit for management of intrathecal infusion pump and the treatment of chronic low back pain. HISTORY OF PRESENT ILLNESS: Followup visit for the patient who is here today for routine refill of his intrathecal pump. We have reconstituted his medication, which includes fentanyl, clonidine, and bupivacaine. Our hope is to extend his refill interval from its current 58 days. I talked to Sam at [facility] and asked him to concentrate the medication to this maximum safe level. It looks as though we have roughly doubled his interval, which will be nice for him. He will not need to come in this frequently. In addition to his intrathecal pump medication, I provided him with a breakthrough oxycodone. The 90 tablets have generally been enough to last him for about 3 or 4 months. He takes no more than about 1 tablet a day. He has had trouble with sleep. He cannot go to sleep at night and often if he wakes up, he does not go back to sleep. He has been using some Flexeril for that purpose, but because of the anticholinergic side effects, I thought he might be best treated with one of the newer soporific. I have ordered Lunesta for him today as a trial at the lowest dose 1 mg. PQRS review shows that he has generalized diffuse osteoarthritis. He is obese with a BMI of 40.7. He is trying to lose weight and he was counseled. He does not smoke or use alcohol. On Coumadin and is under treatment for hypertension. He has a history of cor pulmonale. He has had peripheral edema, possibly exacerbated in part by his intrathecal medications. IMPRESSION: 1. Chronic intractable back pain with radiculopathy. 2. Morbid obesity. 3. History of cor pulmonale. 4. Sleep apnea. 5. Insomnia. 6. Management of intrathecal infusion pump with complex infusion. 7. Management of breakthrough opioid medication under terms of written agreement. [address] [address] PAIN MANAGEMENT CONSULTATION Name: TAINA BIRCH Room #: REG CLAdon[facility] Carolina.#: [id number] Admission: 11/30/17 Attend Phys: Deep Morataya MD Discharge: Date of : 50 Report #: [id number] PROCEDURE: Refill reprogramming. Skin was prepped with ChloraPrep and a 22-gauge non-coring needle advanced into the intrathecal pump. Old medication removed and discarded. The pump was refilled then with 19.5 mL of bupivacaine, clonidine, and fentanyl. Reprogramming session was performed including a bridge bolus. It was double checked by myself and the nurse and he was discharged. Next alarm date is 04/08/2018, so we have indeed increased his interval. It should be noted this NEAL is also 24 months. He will need to have a new pump placed within the next 2 years. By: 1700 2250 Deep Morataya MD /nt
[2017-11-30 11:12] VITALS: BP 136/79
== END | disposition home or self-care (01) ==
LOC: PAIN 06:53
DX: Z45.1 Encounter for adjustment and management of infusion pump (principal); G89.29 Other chronic pain; M54.16 Radiculopathy, lumbar region; G47.33 Obstructive sleep apnea (adult) (pediatric); E66.01 Morbid (severe) obesity due to excess calories; G47.00 Insomnia, unspecified; Z79.01 Long term (current) use of anticoagulants; Z87.891 Personal history of nicotine dependence; Z79.899 Other long term (current) drug therapy; Z68.41 Body mass index [BMI] 40.0-44.9, adult; Z86.718 Personal history of other venous thrombosis and embolism; Z91.041 Radiographic dye allergy status; Z88.8 Allergy status to other drugs, medicaments and biological substances; Z98.890 Other specified postprocedural states

== ENCOUNTER → 2018-03-15 | Outpatient (CLI) | payer OTHER, MEDICARE ==
[~2018-03-15] VITALS: Ht 170.2 cm; Wt 120.2 kg
[~2018-03-15] MED LIST changes: +SPIRIVA INH
--- NOTE | ~2018-03-15 | HPC ---
[facility] [address] [address] [place] [address] PAIN MANAGEMENT CONSULTATION Name: TAINA BIRCH Room #: REG SUSHMA Avril#: [id number] Admission: 03/15/18 Attend Phys: Deep Morataya MD Discharge: Date of : 50 Report #: [id number] THIS REPORT FOR: //name// CC: Jase Morataya DATE OF SERVICE: 03/15/2018 Followup visit for management of chronic pain. The patient returns to pain clinic today for renewal of pain medication. I last provided him with a prescription for oxycodone 10/325, 120 tablets in November. He uses one to two tablets to supplement his intrathecal pump. In addition, he has effectively used Lunesta to help with insomnia and takes Flexeril 10 mg at bedtime for muscle pain. [facility] recommended that I transition him to eszopiclone. This newer non-benzodiazepine hypnotic costs 568 dollars for 30 tablets. I appreciate the advice of [facility], but unless they have a program to provide better coverage for this medication, we will stick with the medication currently that is working. PQRS review shows once again diffuse osteoarthritis and obesity, BMI of 40.7. He continues to try and lose weight and he was counseled once again about the importance. 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 He does not smoke nor does he use alcohol. He is on an opioid agreement signed by our clinic and he has completed an Opioid Risk Tool that shows that he is at low risk for addiction. CONCLUSION of PHYSICAL EXAMINATION: Shows a pleasant 67-year-old gentleman without signs of depression or anxiety. His blood pressure is 158/80, heart rate 82. A 2+ to 3+ edema is noted in the lower extremities. His chest is clear. His cardiac rhythm is regular. IMPRESSION: 1. Chronic low back pain with radiculopathy. 2. Management of high risk medications. 3. Management of intrathecal infusion pump. He will be back for a refill in mid March. I renewed his medications per terms of our written opioid agreement and they are noted in the electronic medical record. By: 1709 0000 Deep Morataya MD /nt
[2018-03-15 14:52] VITALS: BP 158/80
== END ==
LOC: PAIN 09:21
DX: G89.29 Other chronic pain (principal); M54.16 Radiculopathy, lumbar region; Z79.899 Other long term (current) drug therapy

== ENCOUNTER → 2018-03-19 | Outpatient (CLI) | payer OTHER, MEDICARE | LOC: MRI 08:44 | DX: M47.26 Other spondylosis with radiculopathy, lumbar region (principal); M46.06 Spinal enthesopathy, lumbar region; M51.16 Intervertebral disc disorders with radiculopathy, lumbar region; M48.062 Spinal stenosis, lumbar region with neurogenic claudication ==

== ENCOUNTER → 2018-03-28 | Outpatient (CLI) | payer OTHER, MEDICARE ==
[~2018-03-28] VITALS: Ht 170.2 cm; Wt 121.2 kg
--- NOTE | ~2018-03-28 | HPC ---
[facility] [address] [place] [address] PAIN MANAGEMENT CONSULTATION Name: TAINA BIRCH Room #: REG [facility] Caity.#: [id number] Admission: 03/28/18 Attend Phys: Deep Morataya MD Discharge: Date of : 50 Report #: [id number] THIS REPORT FOR: //name// CC: MIRANDA Morataya DATE OF SERVICE: 03/28/2018 The patient returns to pain clinic today for renewal and refill of his intrathecal infusion pump. He is continuing to have some pain throughout his back and also occasionally will have numbness in his leg that results in weakness and any falls. There was some concern that he may have the possibility of an intrathecal granuloma. It was one time he was on hydromorphone. We took it out of the intrathecal pump and placed fentanyl, which has a lower risk in developing granuloma. I have told him that if he has further episodes or if worsens, we will consider the possibility of intrathecal catheter assessment, and I can inject dye through the catheter, sent him over for a CT myelogram or else an MRI to see if we can assess for space-occupying lesion in the thoracic spine. Apparently, Dr. Hi ordered a lumbar MRI. I was not notified unfortunately. I would have recommended that we increase the MRI field up into the thoracic region where the tip of the catheter rests. Today, he reports his pain is a 6/10. He has generalized discomfort across his low back and radiating into his legs. He has a history of osteoarthritis, which involves many joints, hips and knees. He is morbidly obese with a BMI of 41.8. We discussed weight loss today for 3 minutes to 5 minutes. PHYSICAL EXAMINATION: Blood pressure is 161/83, heart rate 84, respirations 16, O2 sat 96%. He is not a fall risk. He is on Coumadin; however, so any fall should be taken seriously. He has a history of hypertension, which Dr. Hi follows closely and manages with medication. SOCIAL HISTORY: He denies use of tobacco or alcohol. IMPRESSION: 1. Chronic low back pain with radiculopathy, post laminectomy syndrome. 2. Cor pulmonale. 3. Morbid obesity. 4. Management of high risk medications. 5. Management of intrathecal infusion pump with refill and reprogramming. DESCRIPTION OF PROCEDURE: With the patient in the supine position, skin was prepped with ChloraPrep. Skin anesthetized over the pump pocket. A 22-gauge non-coring needle was advanced into the intrathecal pump. Old medication was removed and discarded. Pump was then refilled with a combination of fentanyl, [address] [address] PAIN MANAGEMENT CONSULTATION Name: TAINA BIRCH Room #: REG [facility] Avril#: [id number] Admission: 03/28/18 Attend Phys: Deep Morataya MD Discharge: Date of : 50 Report #: [id number] bupivacaine and clonidine, and a reprogramming session was performed. Daily dose medications were confirmed and placed on the chart as a permanent record. On a daily basis, he will be receiving 299 mcg of fentanyl, 4.4 mg of bupivacaine and 59 mcg of clonidine. Followup visit planned in the pain clinic in roughly 4 months for pump refill. No medications were ordered as the intrathecal pump medications for next refill. By: [id number] Deep Morataya MD /nt
[2018-03-28 13:21] VITALS: BP 161/83
== END | disposition home or self-care (01) ==
LOC: PAIN 06:54
DX: M54.16 Radiculopathy, lumbar region (principal); G89.29 Other chronic pain; M96.1 Postlaminectomy syndrome, not elsewhere classified; I27.81 Cor pulmonale (chronic); I10 Essential (primary) hypertension; E66.01 Morbid (severe) obesity due to excess calories; M16.10 Unilateral primary osteoarthritis, unspecified hip; M17.10 Unilateral primary osteoarthritis, unspecified knee; Z68.41 Body mass index [BMI] 40.0-44.9, adult; Z79.01 Long term (current) use of anticoagulants; Z86.718 Personal history of other venous thrombosis and embolism; Z88.8 Allergy status to other drugs, medicaments and biological substances; Z79.899 Other long term (current) drug therapy; Z87.891 Personal history of nicotine dependence

== ENCOUNTER → 2018-08-02 | Outpatient (CLI) | payer OTHER, MEDICARE ==
[~2018-08-02] VITALS: Ht 170.2 cm; Wt 124.4 kg
[~2018-08-02] MED LIST changes: +NEURONTIN 300300 M1 PO
--- NOTE | ~2018-08-02 | HPC ---
[facility] [address] [place] [place] [address] PAIN MANAGEMENT CONSULTATION Name: TAINA BIRCH Room #: REG SUSHMA Avril#: [id number] Admission: 08/02/18 Attend Phys: Deep Morataya MD Discharge: Date of : 50 Report #: [id number] THIS REPORT FOR: //name// CC: Jase Morataya DATE OF SERVICE: 08/02/2018 Followup visit for chronic low back pain with radiculopathy, post-laminectomy syndrome and management of intrathecal infusion pump. The patient returns to pain clinic today for refill and reprogramming of his intrathecal pump. At one point, he felt that maybe he was seeing diminishing success with his pain medication, but today he says he thinks he is getting along okay. He is receiving 300 mcg of fentanyl, 4.4 mg of bupivacaine and 60 mcg of clonidine daily. Pump is a 20 mL pump and he has about 17 months remaining on the battery. We talked about replacing it sometime about a year from now. I have also been providing him a small amount of oral oxycodone as a supplement to his intrathecal infusion pump. 120 tablets is provided one q.6 hours as needed for breakthrough and he finds that this is effective, although he can take up to 3-4 tablets a day if necessary. He has been breaking them in half and getting by oftentimes with just one. He has insomnia, sleeping only about 3 hours a night. He has sleep apnea and wears a mask. He also has cor pulmonale. He is morbidly obese. He has in the past used Lunesta effectively and I have agreed to provide it for him once again. He has trouble falling asleep. Three hours of sleep is not helpful on many levels. He is tired during the day. His pain is worse. It is also a contributor to depression and fatigue. Hopefully, the sleep aid will improve all of those features for him. I also talked to him about nonpharmacologic sleep hygiene and habits that he might try to institute at bedtime, including turning off all devices, perhaps cup of chamomile tea or hot chocolate and going through a bedtime routine as he winds down in the evening before he goes to bed. He will try these things as well. PQRS review was completed. He has generalized osteoarthritis involving his neck, shoulders, hips and knees. He is morbidly obese. BMI 42.9. He needs some help with standing and walking, but has not fallen in the last 3 months. He is on Coumadin and is treated for hypertension by his primary care physician. All medications are reviewed and reconciled. He is currently on amlodipine, lisinopril, carvedilol. He is on written opioid agreement and is felt to be at low risk of addiction. His ORT score is 0. We have checked with [facility] prescription drug monitoring program and there are no unexpected entries. He has been taking alprazolam for a number of years for [address] [address] PAIN MANAGEMENT CONSULTATION Name: TAINA BIRCH Room #: AIDAN SUSHMA Mackenzie#: [id number] Admission: 08/02/18 Attend Phys: Deep Morataya MD Discharge: Date of : 50 Report #: [id number] anxiety disorder and has had no issues with the combination of opioid and alprazolam. PHYSICAL EXAMINATION: He is a pleasant, soft spoken gentleman. He is morbidly obese as mentioned. Blood pressure 153/74, heart rate 86, respirations 20, O2 sat 96 on room air. He can move independently from sitting to standing, but walks with mild antalgic features to his gait. Neck reveals crepitus and he has decreased range of motion and tenderness throughout the cervical spine. His chest is clear. His cardiac rhythm regular. Abdomen is obese and nontender. Scar in the back from previous laminectomy is tender. Pump is in the right abdomen. It is in the comfortable position for him. IMPRESSION: 1. Chronic low back pain with radiculopathy, post-laminectomy syndrome. 2. Cor pulmonale. 3. Morbid obesity. 4. Insomnia. 5. Management of high risk medications. 6. Management of intrathecal infusion pump with reprogramming. PROCEDURE: Skin was prepped with ChloraPrep and anesthetized. A 22-gauge non-coring needle advanced in the pump. Old medication removed and discarded. Pump was refilled with 40 mL of medication, clonidine, fentanyl and bupivacaine reprogrammed. Daily dose will be fentanyl 300, bupivacaine 4.5, clonidine 60. Next refill schedule is for 12/11/2018. He was provided with oxycodone 10/325, #120 tablets for use for severe breakthrough pain. Follow up as needed. By: 1612 2208 Deep Morataya MD /nt
[2018-08-02 14:35] VITALS: BP 153/94
--- NOTE | 2018-08-02 14:49 | NUR ---
Pain Clinic Assessment: 1. History of Osteoarthritis: GENERALIZED History of Rheumatoid Arthritis: Not Applicable 2. Height: 5 ft. 7 in. 170.2 cm. Weight: 274.2 lb. oz. 124.377 kg. Patient's BMI: 42.9 3. Vital Signs: BP: 153/94 Pulse: 86 Resp: 20 Temp: 02 Sat: 96 ECG Mon: 4. Pain Intensity: 7-8 5. Fall Risk: Dizziness: N Needs help standing or walking: Y Fallen in the last 3 months: N Fall risk comments: 6. Patient on Blood Thinner: Warfarin (Coumadin) 7. History of Hypertension: Y 8. Opioid Therapy greater than 6 weeks: Y Opiate Contract Signed: 9. Risk Assessment Tool Provided: 0-LOW RISK 10. Functional Assessment Tool: 45/ 11. Recreational Drug Use: Never Drug Type: Tobacco Use: Former Smoker Tobacco Type: Amount or Packs/day: How Many Years: Alcohol Use: No Frequency: Quant:
== END | disposition home or self-care (01) ==
LOC: PAIN 07:18
DX: Z45.1 Encounter for adjustment and management of infusion pump (principal); M96.1 Postlaminectomy syndrome, not elsewhere classified; G89.29 Other chronic pain; M54.16 Radiculopathy, lumbar region; I10 Essential (primary) hypertension; I27.81 Cor pulmonale (chronic); E66.01 Morbid (severe) obesity due to excess calories; G47.00 Insomnia, unspecified; M19.90 Unspecified osteoarthritis, unspecified site; Z68.41 Body mass index [BMI] 40.0-44.9, adult; Z79.891 Long term (current) use of opiate analgesic; Z79.899 Other long term (current) drug therapy; Z87.891 Personal history of nicotine dependence; Z79.01 Long term (current) use of anticoagulants

== ENCOUNTER → 2018-08-16 | Outpatient (CLI) | payer OTHER, MEDICARE | LOC: RAD 11:15 | DX: J44.9 Chronic obstructive pulmonary disease, unspecified (principal); Z77.090 Contact with and (suspected) exposure to asbestos; Z88.8 Allergy status to other drugs, medicaments and biological substances; Z91.041 Radiographic dye allergy status; Z91.048 Other nonmedicinal substance allergy status ==

== ENCOUNTER → 2018-10-15 | Outpatient (CLI) | payer OTHER, MEDICARE ==
[~2018-10-15] MED LIST changes: +ZALEPLON 10 MG10 M1 PO
--- NOTE | 2018-10-15 10:59 | 2DMMODE ---
[facility] [place] [address] 2 D/M-MODE ECHOCARDIOGRAM Name: QUETATAINA BAH Room #: REG [facility]#: [id number] ������������� Admission: 10/15/18 ������������� Attend Phys: Deonte uSarez MD Discharge: ��� ������������� ��� Date of : 50 Date of Service: 10/15/18 1059 �� Report #: [id number] �������� ��������������������������������������������[id number] THIS REPORT FOR: //name// APPROVED REPORT Study performed: 10/15/2018 10:16:34 EXAM: Comprehensive 2D, Doppler, and color-flow Echocardiogram Patient Location: Echo lab Status: routine BSA: 2.28 HR: 90 bpm BP: 168/90 mmHg Rhythm: NSR Other Information Study Quality: Adequate Indications CAD Hypertension/HDD 2D Dimensions RVDd: 39.67 mm IVSd: 11.67 (7-11mm) LVOT Diam: 20.80 (18-24mm) LVDd: 48.48 mm PWd: 13.44 (7-11mm) Ascending Ao: 30.87 (22-36mm) LVDs: 31.82 (25-40mm) Aortic Root: 29.15 mm IVC: 21.00 mm Volumes Left Atrial Volume (Systole) Single Plane 4CH: 95.99 mL Single Plane 2CH: 71.46 mL LA ESV Index: 39.00 mL/m2 Aortic Valve AoV Peak Brian.: 1.64 m/s AO Peak Gr.: 10.99 mmHg LVOT Max P.16 mmHg LVOT Max V: 1.51 m/s RASHEED Vmax: 3.13 cm2 Mitral Valve E/A Ratio: 1.3 MV Decel. Time: 208.86 ms [facility] [address] [address] 2 D/M-MODE ECHOCARDIOGRAM Name: TAINA BIRCH Room #: REG [facility]#: [id number] ������������� Admission: 10/15/18 ������������� Attend Phys: Deonte Suarez MD Discharge: ��� ������������� ��� Date of : 50 Date of Service: 10/15/18 1059 �� Report #: [id number] �������� ��������������������������������������������[id number] E Max Brian.: 0.96 m/s MV A Brian.: 0.73 m/s MV PHT: 60.57 ms IVRT: 51.90 ms Pulmonary Valve PV Peak Brian.: 1.03 m/s PV Peak Gr.: 4.27 mmHg Pulmonary Vein P Vein S: 0.60 m/s P Vein A: 0.09 m/s P Vein D: 0.86 m/s P Vein A Dur.: 55.4 msec P Vein S/D Ratio: 0.70 Tricuspid Valve TR Peak Brian.: 3.16 m/s RAP Estimate: 10.00 mmHg TR Peak Gr.: 40.04 mmHg PA Pressure: 50.00 mmHg Left Ventricle The left ventricle is normal size. Mild concentric left ventricular hypertrophy. The left ventricular systolic function is normal. The left ventricular ejection fraction is within the normal range. LVEF is 60%. Moderate diastolic dysfunction is present (pseudonormal filling). Right Ventricle Right ventricle is mildly dilated. The right ventricular systolic function is normal. Atria Left atrium is mildly dilated. Right atrium is mildly dilated. Aortic Valve The aortic valve is normal in structure. Trace aortic regurgitation. There is no aortic valvular stenosis. Mitral Valve The mitral valve is normal in structure. Mild mitral regurgitation. No evidence of mitral valve stenosis. Tricuspid Valve The tricuspid valve is normal in structure. Mild tricuspid regurgitation. PAP is estimated at 50 mmHg. Pulmonic Valve [facility] [address] [place] [address] 2 D/M-MODE ECHOCARDIOGRAM Name: TAINA BIRCHNTON [facility] [id number] ������������� Admission: 10/15/18 ������������� Attend Phys: Deonte Suarez MD Discharge: ��� ������������� ��� Date of : 50 Date of Service: 10/15/18 1059 �� Report #: [id number] �������� ��������������������������������������������[id number] The pulmonary valve is normal in structure. Mild pulmonic regurgitation. Great Vessels The aortic root is normal in size. The ascending aorta is normal in size. IVC is upper limits of normal in size and collapses <50% with inspiration. Pericardium There is no pericardial effusion. <Conclusion> The left ventricle is normal size. Mild concentric left ventricular hypertrophy. The left ventricular systolic function is normal. Moderate diastolic dysfunction is present (pseudonormal filling). Right ventricle is mildly dilated. Left atrium is mildly dilated. Right atrium is mildly dilated. Trace aortic regurgitation. Mild mitral regurgitation. Mild tricuspid regurgitation. PAP is estimated at 50 mmHg. ��������������������������������������������� <ELECTRONICALLY SIGNED> ���������������������������������������� By: Deonte Suarez MD ��������������������������������������������� 10/15/18 1059 1059 1059 Deonte Suarez MD /INF
== END ==
LOC: CV 09:43 → ULTRA 09:43 → CV 10:05
DX: I08.8 Other rheumatic multiple valve diseases (principal); R60.0 Localized edema; I25.10 Atherosclerotic heart disease of native coronary artery without angina pectoris; I10 Essential (primary) hypertension; Z91.041 Radiographic dye allergy status; Z88.8 Allergy status to other drugs, medicaments and biological substances; Z91.09 Other allergy status, other than to drugs and biological substances

== ENCOUNTER → 2018-11-22 | Outpatient (CLI) | payer OTHER, MEDICARE ==
[~2018-11-22] VITALS: Ht 170.2 cm; Wt 126.6 kg
[~2018-11-22] MED LIST changes: +FLEXERIL PO
[2018-11-22 13:22] VITALS: BP 116/65
--- NOTE | 2018-11-22 13:29 | NUR ---
Pain Clinic Assessment: 1. History of Osteoarthritis: GENERALIZED History of Rheumatoid Arthritis: Not Applicable 2. Height: 5 ft. 7 in. 170.2 cm. Weight: 279.0 lb. oz. 126.554 kg. Patient's BMI: 43.7 3. Vital Signs: BP: 116/65 Pulse: 73 Resp: 16 Temp: 02 Sat: 96 ECG Mon: 4. Pain Intensity: 7 5. Fall Risk: Dizziness: N Needs help standing or walking: Y Fallen in the last 3 months: Y Fall risk comments: 6. Patient on Blood Thinner: Warfarin (Coumadin) 7. History of Hypertension: Y 8. Opioid Therapy greater than 6 weeks: Y Opiate Contract Signed: 9. Risk Assessment Tool Provided: 0-LOW RISK 10. Functional Assessment Tool: 45/70 11. Recreational Drug Use: Never Drug Type: Tobacco Use: Former Smoker Tobacco Type: Amount or Packs/day: How Many Years: Alcohol Use: No Frequency: Quant:
--- NOTE | 2018-11-26 07:27 | HPC ---
[facility] [place] [address] PAIN MANAGEMENT CONSULTATION Name: TAINA BIRCH Room #: REG Adonis Mackenzie#: [id number] Admission: 11/22/18 ������������������ Attend Phys: Lissett Gee Discharge: ������������������ Date of : 50 Report #: [id number] THIS REPORT FOR: //name// CC: Lissett Gee Jase Hi DATE OF SERVICE: 11/22/2018 CHIEF COMPLAINT: Chronic low back pain with radiculopathy, status post lumbar laminectomy and management of intrathecal infusion pump. HISTORY OF PRESENT ILLNESS: This is a very pleasant 67-year-old gentleman who returns to the pain clinic today for refill of his medications that he uses as a supplement to his intrathecal infusion pump. He takes the oxycodone very sparingly. His last fill was in July for this medication. Today, the patient rates his pain at a 7/10, which is slightly higher than normal since he fell a few days ago. He tells me that his neck and his left shoulder are hurting, but it has only been a couple days, so he is hopeful that that pain will subside. He is only able to raise his arm at about 30 degrees without it hurting. Normally, he has pain in his legs and lower back as well as in his feet. His pain is worse with activity and lifting, but the medications and his intrathecal pump are very helpful in controlling them. The patient tells me he has had pneumonia twice since we had seen him last. He was on prednisone and antibiotics. Then, he started noticing that he was having bleeding around in his arms through some scabs and he did go to the doctor and found out his INR level was 6.1. They stopped his Coumadin for quite some time and it then was subtherapeutic at 1.4. He continues on his Coumadin now and they will recheck again in a week. He tells me he feels better since his pneumonia has cleared. He continues to have some edema in his lower extremities that have gotten worse since he has been less active. He is in the process of obtaining lymphedema sleeves for his legs and his lower extremity cellulitis. ALLERGIES: TAPE AND IV DYE. CURRENT MEDICATIONS: Zaleplon 10 mg at bedtime, oxycodone 10/325 p.r.n., Flexeril 10 mg at bedtime, gabapentin 300 mg t.i.d., Spiriva, potassium 20 mEq daily, Synthroid 50 mcg daily, betamethasone cream topical as needed, amlodipine 10 mg daily, Requip 1 mg at bedtime, Proscar 5 mg at bedtime, Xanax 0.25 daily, fish oil, Coumadin 6 mg alternating with 9 mg daily, torsemide 20 mg daily, tamsulosin b.i.d., Singulair 10 mg daily, Zestril 10 mg daily, Coreg 25 mg b.i.d. and omeprazole 40 mg at bedtime. PQRS: 1. He has generalized osteoarthritis involving his neck, shoulders, knees and hips. He denies any rheumatoid arthritis. [facility] [address] [place] [address] PAIN MANAGEMENT CONSULTATION Name: QUETATAINA BAH Room #: REG CLAdonis Mackenzie#: [id number] Admission: 11/22/18 ������������������ Attend Phys: Lissett Gee Discharge: ������������������ Date of : 50 Report #: [id number] 2. Height is 5 feet 7 inches, weight is 279, BMI is 43. 3. Vital signs: Blood pressure 116/65, pulse is 73, respirations 16, oxygen sat is 96%. 4. Pain score is 7/10. 5. Denies dizziness. Does need help walking and standing. He is in a wheelchair today and uses a walker, cane and has fallen in the last 3 months. 6. The patient is on Coumadin. He does take medications for hypertension. 7. Opioid therapy is greater than 6 weeks; therefore, an opioid signed contract is on the chart. His risk assessment tool is low. Functional assessment is 45/70. 8. Recreational drug use, he denies. He is a former smoker and does not drink alcohol. We did check the prescription monitoring system. The patient is filling appropriately for his medications and he is due for those today. He tells me he does safeguard his medications. PHYSICAL EXAMINATION: GENERAL: This is an alert and orientated, morbidly obese gentleman who appears his stated age, placing his current pain score today at 7/10. HEENT: Normocephalic, atraumatic. Extraocular eye muscles are intact. Mucous membranes are moist. NECK: Complains of tenderness at the base of his neck from his recent fall. Neck reveals crepitus as well and decreased range of motion. ABDOMEN: Obese and nontender. Intrathecal pump is present in the right abdomen. MUSCULOSKELETAL: The patient can move independently from sitting to standing, but moves very slowly. He does walk with an antalgic gait. Left shoulder is tender to the touch today and tender with movement. Able to abduct his arm about 15 degrees before it becomes painful due to his recent fall. EXTREMITIES: Lower extremities reveal significant edema of 3+ and reddened lower extremities of the appearance of cellulitis, also complains of burning and numbness in his feet. IMPRESSION: 1. Chronic low back pain with radiculopathy, post-laminectomy syndrome. 2. Cor pulmonale. 3. Morbid obesity. 4. Insomnia. 5. Left shoulder pain, status post fall. 6. Management of high risk medications. 7. Management of intrathecal infusion pump. We reviewed the fact that opiate medications are being used to provide analgesia adequate to support activities of daily living, not attempting to achieve a specific pain score on the 0-10 Visual Analog Scale. The current opiate [facility] [address] [place] [address] PAIN MANAGEMENT CONSULTATION Name: TAINA BIRCH Room #: REG [facility].#: [id number] Admission: 11/22/18 ������������������ Attend Phys: Lissett Gee Discharge: ������������������ Date of : 50 Report #: [id number] medications are providing sufficient analgesia to allow the patient to participate in activities of daily living. The patient is not exhibiting any aberrant behavior suggestive of drug diversion. The patient is not having any adverse reactions to medications. The patient is not suffering from daytime somnolence or mental acuity changes. The patient is managing opiate-induced constipation with appropriate gken-did-msajywt agents and dietary considerations. The patient was counseled on concern for caution with operating a motor vehicle while using opiate medications. A physical exam was performed and the patient's functional status was evaluated. All patients with back pain were advised against the bed rest greater than 4 days and were advised to return to normal activities. Pain score assessment was noted and the treatment plan was reviewed with the patient. All current medications, both prescribed and OTC were reviewed and reconciled on the electronic medical record. Tobacco screening was accomplished and smoking cessation was advised when indicated. BMI was noted and diet/exercise modification was recommended for all patients following outside normal parameters. I reviewed with the patient today their responsibilities to safeguard prescription medications, reviewed their responsibility to utilize medications only as prescribed by the physician. They are to seek and receive pain medications only from 1 physician group ( [facility]). They are to use 1 pharmacy and keep the clinic informed if they change pharmacies. Their responsibilities include making followup visits in a timely fashion and to avoid abrupt discontinuation of medication usage. Their responsibilities further include bringing their medications (bottles from the pharmacy with residual pills) to the visit for possible confirmation of pill counts and the patient understands it is their responsibility to submit to random drug screens to ensure both that the medications prescribed are present, and that no other controlled substances are present. All prescriptions provided today were generated electronically. PLAN: 1. We discussed treatment options with the patient today. The patient tells me that he takes his oral medications very sparingly and needs a refill of those today. Prescriptions given for oxycodone , #120. This usually lasts for the patient about 3 months in between his intrathecal pump fills. 2. The patient tells me that he started a new medication from his primary care doctor for his sleep of Zaleplon. He is taking that at bedtime and does not need the Lunesta from Dr. Deep Morataya today, though he tells me this medication does not afford him as much rest as his previous medication that we prescribed for him. He feels like he has not had hungover feeling that he experienced with Lunesta as well. 3. We discussed constipation. The patient is encouraged to use MiraLax or stool softeners as he sees fit in relation to his constipation. [facility] [address] [place] [address] PAIN MANAGEMENT CONSULTATION Name: TAINA BIRCH Room #: REG SUSHMA Mackenzie#: [id number] Admission: 11/22/18 ������������������ Attend Phys: Lissett Gee Discharge: ������������������ Date of : 50 Report #: [id number] 4. The patient did fall several days ago, which has increased his neck pain and caused him to have some left shoulder pain. I encouraged the patient if the pain continues greater than a week and unable to have his normal range of motion in his left shoulder, he is to contact his primary care office and possibly have it x-rayed. He verbalizes understanding. 5. The patient will return later this month for refill of his intrathecal pump by Dr. Morataya. The patient is seen today in collaboration with him. ��������������������������������������������� <ELECTRONICALLY SIGNED> ���������������������������������������� By: Lissett Gee ��������������������������������������������� 11/26/18 0727 1540 1008 Lissett Gee /mushtaq
== END ==
LOC: PAIN 06:59
DX: M54.16 Radiculopathy, lumbar region (principal); G89.29 Other chronic pain; M96.1 Postlaminectomy syndrome, not elsewhere classified; E66.01 Morbid (severe) obesity due to excess calories; M25.511 Pain in right shoulder; Z79.899 Other long term (current) drug therapy; Z91.041 Radiographic dye allergy status

== ENCOUNTER → 2018-12-10 | Outpatient (CLI) | payer OTHER, MEDICARE ==
[~2018-12-10] VITALS: Ht 170.2 cm; Wt 127.9 kg
[2018-12-10 09:45] VITALS: BP 151/88
--- NOTE | 2018-12-10 09:57 | NUR ---
Pain Clinic Assessment: 1. History of Osteoarthritis: GENERALIZED History of Rheumatoid Arthritis: Not Applicable 2. Height: 5 ft. 7 in. 170.2 cm. Weight: 282.0 lb. oz. 127.915 kg. Patient's BMI: 44.2 3. Vital Signs: BP: 151/88 Pulse: 71 Resp: 14 Temp: 02 Sat: 97 ECG Mon: 4. Pain Intensity: 6-7 5. Fall Risk: Dizziness: N Needs help standing or walking: N Fallen in the last 3 months: N Fall risk comments: 6. Patient on Blood Thinner: Warfarin (Coumadin) 7. History of Hypertension: Y 8. Opioid Therapy greater than 6 weeks: Y Opiate Contract Signed: 11/30/17 9. Risk Assessment Tool Provided: 0-LOW RISK 10. Functional Assessment Tool: 11. Recreational Drug Use: Never Drug Type: Tobacco Use: Former Smoker Tobacco Type: Amount or Packs/day: How Many Years: Alcohol Use: No Frequency: Quant:
--- NOTE | 2018-12-18 17:25 | HPC ---
[facility] [address] [place] [address] PAIN MANAGEMENT CONSULTATION Name: TAINA BIRCH Room #: REG SUSHMA [facility]angerRubiSumanRubi#: [id number] Admission: 12/10/18 ������������������ Attend Phys: Deep Morataya MD Discharge: ������������������ Date of : 50 Report #: [id number] THIS REPORT FOR: //name// CC: Jase Morataya DATE OF SERVICE: 12/10/2018 Followup visit for chronic low back pain with radiculopathy, post-laminectomy syndrome. Management of intrathecal infusion pump with refill and reprogramming and management of opioid medication under terms of written opioid agreement. This is a followup visit for the patient who is receiving fentanyl, bupivacaine, clonidine to his intrathecal pump and is allowed to take oxycodone for breakthrough pain. He averages about 1-2 tablets a day. He never exceeds 2. There are days when he takes none orally and is grateful for the relief that his intrathecal pump provides him. I have agreed to renew that for him for his overall generalized pain and reviewed our opioid agreement with him. PQRS: 1. Positive for diffuse generalized osteoarthritis for which he takes oral medication. 2. 5 feet 7 inches, 282 pounds, BMI of 44.2. 3. Vital signs: Blood pressure 151/88, heart rate 71, respirations 14, O2 sat 97. 4. Pain intensity 6-7/10. 5. He is not a fall risk. 6. He is on Coumadin. 7. He is on medication for hypertension. All medications were reviewed and reconciled from the electronic medical record. Please see them noted there. 8. He is on an opioid agreement, last signed in 11/2017. 9. He is considered at low risk of addiction by the opioid risk tool. 10. Functional assessment tool is 45/70. 11. He denies use of tobacco and alcohol. IMPRESSION: 1. Chronic low back pain with diffuse osteoarthritis. 2. Post-laminectomy syndrome with failed back. 3. Chronic lumbar radiculopathy. 4. Morbid obesity. 5. Cor pulmonale. 6. Management of intrathecal infusion pump with refill and reprogramming. 7. Management of high risk oral medications under terms of written opioid agreement. PROCEDURE: Refill and reprogramming of intrathecal pump. [facility] [address] [place] [address] PAIN MANAGEMENT CONSULTATION Name: QUETATAINA SONGNTON [facility] #: [facility] [id number] Admission: 12/10/18 ������������������ Attend Phys: Deep Morataya MD Discharge: ������������������ Date of : 50 Report #: [id number] Skin was prepped with ChloraPrep. A 22-gauge non-coring needle advanced in the pump. Old medication removed and discarded per protocol. Pump refilled with 39.5 mL of medication. This includes clonidine, fentanyl, bupivacaine and reprogramming session was performed. Please see chart programming information. Next refill is scheduled for 04/20/2019. His NEAL is 13 months. He should have his pump changed sometime in early 2019 and I remind him that we want him to get scheduled with Dr. Sargent. His written prescriptions were provided for him. He again is grateful for the pain relief that they provide and the improvement in day-to-day function that he sees. He is able to do many of his walking, standing and lifting activities more effectively with pain medication and without. He denies side effects. Under terms of written agreement, he understands he has great responsibility in safeguarding his medications. Medications were renewed as needed between now and the time of his pump refill in April. ��������������������������������������������� <ELECTRONICALLY SIGNED> ���������������������������������������� By: Deep Morataya MD ��������������������������������������������� 12/18/18 1725 1550 39 Deep Morataya MD /nt
== END | disposition home or self-care (01) ==
LOC: PAIN 06:45
DX: Z45.1 Encounter for adjustment and management of infusion pump (principal); G89.29 Other chronic pain; M19.90 Unspecified osteoarthritis, unspecified site; M96.1 Postlaminectomy syndrome, not elsewhere classified; M54.16 Radiculopathy, lumbar region; I10 Essential (primary) hypertension; E66.01 Morbid (severe) obesity due to excess calories; Z68.41 Body mass index [BMI] 40.0-44.9, adult; Z79.01 Long term (current) use of anticoagulants; Z87.891 Personal history of nicotine dependence; Z86.718 Personal history of other venous thrombosis and embolism; Z88.8 Allergy status to other drugs, medicaments and biological substances; Z79.899 Other long term (current) drug therapy

== ENCOUNTER → 2019-04-18 | Outpatient (CLI) | payer OTHER, MEDICARE ==
[~2019-04-18] VITALS: Ht 170.2 cm; Wt 121.9 kg
[~2019-04-18] MED LIST changes: +ASPIR 8181 MG PO; +AZELASTINE205.5 MCG/ NARES; +BUDESONIDE0.25 MG/2 INH; +COUMADIN6 MG PO; +FISH OIL 1,0001 EAC9 PO; +LIPITOR40 MG PO; +PERCOCET 10-321 EAC1 PO; +PRINIVIL20 M1 PO; +TRAZODONE HCL50 MG PO; +XANAX 0.5 MG0.5 M1 PO; +YUPELRI175 MCG/3 INH
--- NOTE | ~2019-04-18 | HPC ---
[facility] [address] [place] [address] PAIN MANAGEMENT CONSULTATION Name: SEGUNTAINA DICKERSON Room #: REG SUSHMA Avril#: [id number] Admission: 04/18/19 Attend Phys: Deep Morataya MD Discharge: Date of : 50 Report #: [id number] THIS REPORT FOR: //name// CC: Jase Morataya DATE OF SERVICE: 04/18/2019 Followup visit for chronic intractable pain, management of intrathecal infusion pump with refill and reprogramming session. The patient returns to pain clinic today for refill and reprogramming of his intrathecal infusion pump. He has an NEAL remaining of about 9 months. He will have to have his pump replaced by the end of November. Typically, we would like to do this within 6 months, so I have told him to call back in June. We will try to get him scheduled with Dr. Sargent sometime in June or July if that works out for him. It is typically best not to run the pumps all the way to the end of the battery. He is grateful for the pain relief that the medication is providing. It is a combination of fentanyl, bupivacaine, and clonidine. The edema in his legs is dramatically reduced since we have switched over to fentanyl some time ago. He does not want to increase the infusion in his pump. He uses oxycodone 10/325 for breakthrough pain, but he is very careful about how much he takes and when he takes it. Although he has on occasion taken a whole tablet, he oftentimes breaks the tablets into quarters, a one-quarter tablet can be enough to provide some pain relief to allow him to get by. He denies any significant side effects and is grateful for the pain relief and improvement in day-to-day function that it allows without increasing his pump. He understands the importance of safeguarding medications under the terms of our written agreement and we have discussed on several occasions safeguarding to prevent diversion and illicit drug use. I do not see any red flags on his chart or otherwise, so we will continue medications. PHYSICAL EXAMINATION: GENERAL: He is a pleasant, alert and oriented gentleman. He is morbidly obese. VITAL SIGNS: He weighs 268 pounds and his height is 5 feet 7 inches. His BMI is in excess of 40. His blood pressure is 173/100. He is instructed to follow up with his primary care physician for the hypertension. Dr. Hi is his doctor. His O2 sats are 93. He independently moves from sitting to standing position, but is a bit short of breath. LUNGS: Breath sounds are distant. He has no wheezing. CARDIAC: His cardiac rhythm is regular. ABDOMEN: Distended and obese. Bowel sounds are present. Pump is in the right lower quadrant. It is difficult to palpate. [facility] [address] [place] [address] PAIN MANAGEMENT CONSULTATION Name: TAINA BIRCHNTON Room #: REG SUSHMA Mackenzie#: [id number] Admission: 04/18/19 Attend Phys: Deep Morataya MD Discharge: Date of : 50 Report #: [id number] MUSCULOSKELETAL: Examination of the lower extremities reveals a trace to 1+ pitting edema. IMPRESSION: 1. Chronic intractable low back pain and cervicalgia. 2. Management of opioid medications under terms of high risk medication. Opioid agreement. 3. Management of intrathecal infusion pump with refill and reprogramming session. PROCEDURE: Refill and reprogramming. Skin was prepped with ChloraPrep. Skin anesthetized. A 22-gauge non-coring needle advanced in the pump. Old medication removed and discarded. There were no discrepancies. It was discarded per protocol. Pump was then refilled with a combination of fentanyl, bupivacaine, and clonidine and reprogramming session was performed. He has enough medication to carry him through to the 08/26/2018. I did renew his prescription for 120 oxycodone 10/325 tablets. One per day will get him almost to his next appointment. I gave him a second prescription to be released in 8 weeks since he lives some distance from the clinic. Before his discharge, we spent some time discussing his upcoming pump replacement and surgery. Several questions were asked and answered. I would recommend a 40 mL pump. It is probably not a bad idea for him to spend the night in the hospital after pump placement as an observation patient as well. Followup visit planned in June to touch base on the pump replacement. By: [id number] Deep Morataya MD /nt
[2019-04-18 11:12] VITALS: BP 173/100
--- NOTE | 2019-04-18 11:19 | NUR ---
Pain Clinic Assessment: 1. History of Osteoarthritis: GENERALIZED History of Rheumatoid Arthritis: Not Applicable 2. Height: 5 ft. 7 in. 170.2 cm. Weight: 268.8 lb. oz. 121.927 kg. Patient's BMI: 42.1 3. Vital Signs: BP: 173/100 Pulse: 75 Resp: 18 Temp: 02 Sat: 93 ECG Mon: 4. Pain Intensity: 7 5. Fall Risk: Dizziness: N Needs help standing or walking: N Fallen in the last 3 months: N Fall risk comments: 6. Patient on Blood Thinner: Warfarin (Coumadin) 7. History of Hypertension: Y 8. Opioid Therapy greater than 6 weeks: Y Opiate Contract Signed: 11/30/17 9. Risk Assessment Tool Provided: 0-LOW RISK 10. Functional Assessment Tool: 11. Recreational Drug Use: Never Drug Type: Tobacco Use: Former Smoker Tobacco Type: Amount or Packs/day: How Many Years: Alcohol Use: No Frequency: Quant:
== END | disposition home or self-care (01) ==
LOC: PAIN 07:05
DX: Z45.1 Encounter for adjustment and management of infusion pump (principal); G89.29 Other chronic pain; M54.5 Low back pain; M54.2 Cervicalgia; Z79.891 Long term (current) use of opiate analgesic; Z79.01 Long term (current) use of anticoagulants; Z87.891 Personal history of nicotine dependence; Z91.041 Radiographic dye allergy status; Z86.718 Personal history of other venous thrombosis and embolism

== ENCOUNTER → 2019-04-22 | Outpatient (CLI) | payer OTHER, MEDICARE ==
[~2019-04-22] VITALS: Ht 170.2 cm; Wt 117.9 kg
--- NOTE | 2019-04-23 16:03 | P ---
[facility] [address] [place] [address] PROCEDURE REPORT Name: TAINA BIRCH Room #: REG [facility]#: [id number] Admission: 04/22/19 Attend Phys: Russell Manriquez MD Discharge: Date of : 50 Report #: [id number] THIS REPORT FOR: //name// CC: Russell Hi MD DATE OF SERVICE: 04/22/2019 OUTPATIENT COLONOSCOPY REPORT BRIEF HISTORY: The patient is a 68-year-old male for average risk screening colonoscopy. His last colon exam was 10 years ago. PREOPERATIVE DIAGNOSIS: Average risk screening colonoscopy. POSTOPERATIVE DIAGNOSES: 1. Mild sigmoid diverticulosis coli. 2. Small internal hemorrhoids. MEDICATIONS: Deep sedation with propofol per anesthesia. SPECIMEN: None. ESTIMATED BLOOD LOSS: None. PROCEDURE: Colonoscopy to cecum and ileocecal valve. FINDINGS: Prior to propofol sedation, procedure of colonoscopy discussed with the patient as well as potential risks and its complications. He indicates he understands and desires to proceed. DESCRIPTION OF PROCEDURE: With the patient in left lateral decubitus position, digital examination was completed, which revealed no abnormalities. Subsequently, the Olympus video colonoscope was introduced in the rectum, advanced under direct vision to the cecum. Done with minimal difficulty. The cecum was identified by the ileocecal valve and the appendiceal orifice. However, due to looping of the scope, we could not cross the ileocecal valve, but we could clearly see the ileocecal valve to the cecum. It was unremarkable. At that point, the scope was slowly withdrawn and careful circumferential views obtained. Upon slow withdrawal of the scope, the prep was excellent. Mucosa within normal limits, normal vascular pattern, normal light reflex. As we withdrew the scope, mucosa was within normal limits, normal vascular pattern, normal light reflex. No neoplastic lesions were seen during this exam. He had normal colonic mucosa throughout the entire colon. As we withdrew the scope through the sigmoid, a few scattered diverticula were seen. There was no [facility] [address] [place] [address] PROCEDURE REPORT Name: TAINA BIRCH Room #: REG [facility]#: [id number] Admission: 04/22/19 Attend Phys: Russell Manriquez MD Discharge: Date of : 50 Report #: [id number] endoscopic evidence of diverticulitis. The scope was withdrawn in the rectum, no abnormalities were seen. Upon retroflexion, however, small hemorrhoids were seen. Scope was withdrawn. The patient tolerated the procedure well. CONDITION OF THE PATIENT UPON DISCHARGE: Following procedure, the patient drowsy, aroused, conversant and will be discharged home when fully ambulatory. INSTRUCTIONS TO THE PATIENT AND FAMILY AT THE TIME OF DISCHARGE: No neoplastic lesions were seen. He is considered average risk regarding colon cancer. He should return in 10 years for average risk screening colonoscopy or sooner if some problems should develop. Last colonoscopy 10 years ago. Withdrawal time from the cecum was 12 minutes and 1 second. <ELECTRONICALLY SIGNED> By: Russell Manriquez MD 04/23/19 1603 0927 2038 Rsusell Manriquez MD /nt
--- NOTE | 2019-04-23 16:03 | P ---
[facility] [address] [place] [address] PROCEDURE REPORT Name: TAINA BIRCH Room #: [facility] [id number] Admission: 04/22/19 Attend Phys: Russell Manriquez MD Discharge: Date of : 50 Report #: [id number] THIS REPORT FOR: //name// CC: Russell Hi MD OUTPATIENT UPPER ENDOSCOPY REPORT BRIEF HISTORY: The patient is a 68-year-old male with history of recurrent solid food dysphagia. He has had multiple dilations in the past and the most recent was about 5 years ago. He presents today for colonoscopy. Also reports he is having continued solid food dysphagia, especially for meat. PREOPERATIVE DIAGNOSIS: Recurrent solid food dysphagia. POSTOPERATIVE DIAGNOSES: 1. Moderate diffuse erythematous gastritis. 2. A 3 cm sliding type hiatus hernia. 3. Dysphagia. MEDICATIONS: Deep sedation with propofol per anesthesia. SPECIMEN: Random biopsies of esophagus, rule out eosinophilic esophagitis. ESTIMATED BLOOD LOSS: 3 mL. PROCEDURE: EGD with biopsy, Leong dilation. FINDINGS: Prior to propofol sedation, procedure of upper endoscopy and dilation was discussed with the patient as well as potential risks and its complications. He indicates he understands and desires to proceed. DESCRIPTION OF PROCEDURE: With the patient in left lateral decubitus position, the Olympus video endoscope was inserted in cervical esophagus under direct vision without difficulty. Examination of this organ through its entire length revealed normal esophageal mucosa down the squamocolumnar junction. There was some slight tortuosity in the distal esophagus, but a definite stricture or ring was not seen. Squamocolumnar junction was unremarkable. No ulcers, erosions or Escamilla mucosa was seen. He was found to have about a 3 cm sliding type hiatus hernia. The mucosa and hernia was unremarkable. The scope was advanced in the stomach, was examined on end view as well as retroflexed views. He had a pattern of a diffuse gastritis, which has been noted in the past and previously biopsied. Biopsies were not repeated today. Upon retroflexion hiatus hernia was seen. No other abnormalities were identified. The pylorus, duodenal bulb and postbulbar sweep were inspected and noted to be unremarkable. At that point, the scope was slowly withdrawn and careful circumferential views [address] [address] PROCEDURE REPORT Name: QUETATAINA BAH Room #: REG SUSHMA Mackenzie#: [id number] Admission: 04/22/19 Attend Phys: Russell Manriquez MD Discharge: Date of : 50 Report #: [id number] confirmed the above finding. The patient tolerated the procedure well. Random biopsies obtained of the esophagus to evaluate for eosinophilic esophagitis. Following the removal of the scope, he was dilated with passage of 50-Serbian Leong dilator. There was no resistance to passage of dilator. INSTRUCTIONS TO THE PATIENT AND FAMILY AT THE TIME OF DISCHARGE: We will see how he does following dilation today. If he does not have complete remission of symptoms, I would suggest manometry for further evaluation in view of his recurrent dysphagia. However, he reports he has had success with dilation in the past. If he has complete remission and has recurrent symptoms in the future, he may be dilated on as needed basis. We will follow up on biopsies. We will proceed with colonoscopy at this time. <ELECTRONICALLY SIGNED> By: Russell Manriquez MD 04/23/19 1603 0903 16 Russell Manriquez MD /nt
--- NOTE | 2019-04-24 17:06 | PATH ---
[facility] [address] [place] [address] PATHOLOGY RPT PROCEDURE Name: JAMES GALLEGOS Room #: REG SUSHMA Mackenzie#: [id number] Admission: 04/22/19 Date of : 50 Discharge: Report #: [id number] Path Case #: [id number] [facility] Accession Number: [id number] . 01 Material submitted: . esophagus - RANDOM ESOPHAGEAL BIOPSY RE: RECURRENT DYSPHAGIA, R/O EOE . 01 Clinical history: . Pre-op diagnosis: Dysphagia, screening colon Post-op diagnosis: Dysphagia, hiatal hernia, diverticulosis, hemorrhoids R/O EOE . 02 Diagnosis: Squamous mucosa, random esophageal, endoscopic biopsy: - Mild esophagitis with features compatible with reflux esophagitis. - No increase in intraepithelial eosinophils (1-2/hpf). - Negative for intestinal metaplasia or dysplasia. (IUV:carmita; 04/24/2019) MBR 04/24/2019 1250 Local . 02 Electronically signed: . Mary Gomez MD, Pathologist NPI- [id number] . 01 Gross description: . The specimen is received in formalin, labeled "James Gallegos, random biopsy esophagus regarding recurrent dysphagia". Received are six segments of pale marroquin soft tissue ranging in size from 0.3 to 0.6 cm in maximum dimensions. The specimen is submitted entirely in cassette A1. (CAA; 04/23/2019) QAC/QA 04/23/2019 1128 Local . 02 Pathologist provided ICD-10: K21.9 . 02 CPT . 845868 Specimen Comment: A courtesy copy of this report has been sent to [phone], [phone] Specimen Comment: [id number] Specimen Comment: Report sent to / DR POWELL Performed at: [address] [id number] MD Den Cordon MD Phone: [phone] Performed at: 02 [facility] [address] [place] [address] PATHOLOGY RPT PROCEDURE Name: JAMES GALLEGOS Room #: REG SUSHMA Mackenzie#: [id number] Admission: 04/22/19 Date of : 50 Discharge: Report #: [id number] Path Case #: [id number] [address] [place] [id number] MD Mary Gomez MD Phone: [phone]
== END | disposition home or self-care (01) ==
LOC: GI 07:57
DX: Z12.11 Encounter for screening for malignant neoplasm of colon (principal); K57.30 Diverticulosis of large intestine without perforation or abscess without bleeding; K21.0 Gastro-esophageal reflux disease with esophagitis; K64.8 Other hemorrhoids; K44.9 Diaphragmatic hernia without obstruction or gangrene; R13.12 Dysphagia, oropharyngeal phase; J43.9 Emphysema, unspecified; G47.30 Sleep apnea, unspecified; I10 Essential (primary) hypertension; E78.5 Hyperlipidemia, unspecified; E03.9 Hypothyroidism, unspecified; G62.9 Polyneuropathy, unspecified; E66.09 Other obesity due to excess calories; Z87.19 Personal history of other diseases of the digestive system; Z98.890 Other specified postprocedural states; Z96.653 Presence of artificial knee joint, bilateral; Z85.828 Personal history of other malignant neoplasm of skin; Z87.891 Personal history of nicotine dependence; Z90.49 Acquired absence of other specified parts of digestive tract; Z79.899 Other long term (current) drug therapy; Z86.711 Personal history of pulmonary embolism; Z86.718 Personal history of other venous thrombosis and embolism; Z79.01 Long term (current) use of anticoagulants; Z68.41 Body mass index [BMI] 40.0-44.9, adult
CPT/HCPCS: 62110; 62900

== ENCOUNTER → 2019-08-22 | Outpatient (CLI) | payer OTHER, MEDICARE ==
[~2019-08-22] VITALS: Ht 170.2 cm; Wt 121.8 kg
[~2019-08-22] MED LIST changes: +CELEBREX 200 M200 MG PO
--- NOTE | ~2019-08-22 | HPC ---
[facility] [address] [place] [place] [address] PAIN MANAGEMENT CONSULTATION Name: TAINA BIRCH Room #: REG SUSHMA CarolinaRubi#: [id number] Admission: 08/22/19 Attend Phys: Deep Morataya MD Discharge: Date of : 50 Report #: [id number] THIS REPORT FOR: cc: Jase Hi MD, Neal A. MD Morgan,Deep Bray MD ~ CC: Russell Morataya DATE OF SERVICE: 08/22/2019 Postop visit for wound check and adjustment of intrathecal infusion pump. The patient returns to clinic today following replacement of his intrathecal pump with a new 40 mL pump. Surgery went well. I discussed case with Dr. Sargent and his nurses. The patient had a nice recovery, does not feel that he needs an adjustment in his medication. He is here mostly for a wound check. PHYSICAL EXAMINATION: GENERAL: He is pleasant, alert and oriented with no signs of significant discomfort. He is alert and oriented. CHEST: Clear. CARDIAC: Rhythm is regular. He is afebrile. VITAL SIGNS: Blood pressure is 156/87, heart rate 75, respirations 16, O2 sat 97%. Examination of the area of surgery shows that the wound is healing nicely. There is no evidence of inflammation or excessive swelling. There is a bit of edema, typical replacement particularly with a larger pump, which requires some enlargement of the incision. IMPRESSION: He is recovering well. He will need some additional breakthrough pain medication, which I have renewed for him today under the electronic prescription programming information. IMPRESSION: 1. Chronic intractable low back pain and cervicalgia. 2. Bilateral osteoarthritis of the ankles with severe pain. 3. Management of intrathecal infusion pump with postop wound check. [facility] [address] [place] [address] PAIN MANAGEMENT CONSULTATION Name: TAINA BIRCH Room #: REG CLAdonis Mackenzie#: [id number] Admission: 08/22/19 Attend Phys: Deep Morataya MD Discharge: Date of : 50 Report #: [id number] Followup visit is planned in November to December for refill of his pump. By: 1603 1628 Deep Morataya MD /nt
[2019-08-22 12:54] VITALS: BP 156/87
--- NOTE | 2019-08-22 13:09 | NUR ---
Pain Clinic Assessment: 1. History of Osteoarthritis: GENERALIZED B/L ANKLES SPINE B/L KNEES History of Rheumatoid Arthritis: Not Applicable 2. Height: 5 ft. 7 in. 170.2 cm. Weight: 268.6 lb. oz. 121.836 kg. Patient's BMI: 42.1 3. Vital Signs: BP: 156/87 Pulse: 75 Resp: 16 Temp: 02 Sat: 97 ECG Mon: 4. Pain Intensity: 7-8-TODAY 5. Fall Risk: Dizziness: N Needs help standing or walking: Y Fallen in the last 3 months: Y Fall risk comments: 6. Patient on Blood Thinner: Warfarin (Coumadin) 7. History of Hypertension: Y 8. Opioid Therapy greater than 6 weeks: Y Opiate Contract Signed: 11/30/17 9. Risk Assessment Tool Provided: 0-LOW RISK 10. Functional Assessment Tool: 45 11. Recreational Drug Use: Never Drug Type: Tobacco Use: Former Smoker Tobacco Type: Amount or Packs/day: How Many Years: Alcohol Use: No Frequency: Quant:
== END ==
LOC: PAIN 06:46
DX: Z45.1 Encounter for adjustment and management of infusion pump (principal); M19.072 Primary osteoarthritis, left ankle and foot; M19.071 Primary osteoarthritis, right ankle and foot; Z79.899 Other long term (current) drug therapy

== ENCOUNTER → 2019-10-21 | Outpatient (CLI) | payer OTHER, MEDICARE | LOC: SJCVCIMAG 09:06 | DX: I08.8 Other rheumatic multiple valve diseases (principal); I11.9 Hypertensive heart disease without heart failure; I25.10 Atherosclerotic heart disease of native coronary artery without angina pectoris; J44.9 Chronic obstructive pulmonary disease, unspecified; E78.00 Pure hypercholesterolemia, unspecified; Z79.82 Long term (current) use of aspirin; Z79.899 Other long term (current) drug therapy; Z87.891 Personal history of nicotine dependence ==

== ENCOUNTER → 2019-10-23 | Outpatient (CLI) | payer OTHER, MEDICARE | LOC: SJCVCIMAG 09:05 | DX: I10 Essential (primary) hypertension (principal); I25.10 Atherosclerotic heart disease of native coronary artery without angina pectoris; E78.00 Pure hypercholesterolemia, unspecified; R60.9 Edema, unspecified; E78.5 Hyperlipidemia, unspecified; Z87.891 Personal history of nicotine dependence; J44.9 Chronic obstructive pulmonary disease, unspecified; Z79.82 Long term (current) use of aspirin; Z79.01 Long term (current) use of anticoagulants; Z79.899 Other long term (current) drug therapy ==

== ENCOUNTER → 2019-11-21 | Outpatient (CLI) | payer OTHER, MEDICARE | LOC: SJCVC 16:00 | DX: I25.10 Atherosclerotic heart disease of native coronary artery without angina pectoris (principal); I10 Essential (primary) hypertension; I26.99 Other pulmonary embolism without acute cor pulmonale; R60.9 Edema, unspecified; J44.9 Chronic obstructive pulmonary disease, unspecified; K21.9 Gastro-esophageal reflux disease without esophagitis; E03.9 Hypothyroidism, unspecified; Z79.899 Other long term (current) drug therapy; Z79.82 Long term (current) use of aspirin; Z82.49 Family history of ischemic heart disease and other diseases of the circulatory system; Z87.891 Personal history of nicotine dependence ==

== ENCOUNTER 2019-11-26 15:21 | Emergency (ER) | payer OTHER, MEDICARE ==
[~2019-11-26] VITALS: Ht 170.2 cm; Wt 120.2 kg
[2019-11-26] MEDS ORDERED: COLACE100 MG PO (16:42)
[2019-11-26] MEDS ORDERED: NORCO 5-325 TA1 EAC1 PO ×3 (16:42→16:49)
[2019-11-26 16:50] VITALS: BP 143/89
== END 2019-11-26 16:50 | disposition home or self-care (01) ==
LOC: ER 15:21
DX: S80.02XA Contusion of left knee, initial encounter (principal); I10 Essential (primary) hypertension; K21.9 Gastro-esophageal reflux disease without esophagitis; E66.9 Obesity, unspecified; E03.9 Hypothyroidism, unspecified; G62.9 Polyneuropathy, unspecified; Z96.652 Presence of left artificial knee joint; Z85.828 Personal history of other malignant neoplasm of skin; Z79.899 Other long term (current) drug therapy; Z79.82 Long term (current) use of aspirin; Z91.041 Radiographic dye allergy status; Z91.048 Other nonmedicinal substance allergy status; Z87.891 Personal history of nicotine dependence; Z79.01 Long term (current) use of anticoagulants; Z96.651 Presence of right artificial knee joint; Z90.49 Acquired absence of other specified parts of digestive tract; Z86.718 Personal history of other venous thrombosis and embolism; W19.XXXA Unspecified fall, initial encounter; Y93.89 Activity, other specified; Y92.89 Other specified places as the place of occurrence of the external cause; Y99.8 Other external cause status

== ENCOUNTER → 2019-12-26 | Outpatient (CLI) | payer OTHER, MEDICARE ==
[~2019-12-26] VITALS: Ht 170.2 cm; Wt 124.3 kg
[~2019-12-26] MED LIST changes: +COLACE100 MG PO; +ENDOCET 10-3251 EACH PO; +NORCO 5-325 TA1 EAC1 PO
[2019-12-26 14:11] VITALS: BP 161/94
--- NOTE | 2019-12-26 14:36 | NUR ---
Pain Clinic Assessment: 1. History of Osteoarthritis: GENERALIZED B/L ANKLES SPINE B/L KNEES History of Rheumatoid Arthritis: DENIES 2. Height: 5 ft. 7 in. 170.2 cm. Weight: 274.0 lb. oz. 124.286 kg. Patient's BMI: 42.9 3. Vital Signs: BP: 161/94 Pulse: 80 Resp: 20 Temp: 02 Sat: 97 ECG Mon: 4. Pain Intensity: 5 8 knee 5. Fall Risk: Dizziness: N Needs help standing or walking: Y Fallen in the last 3 months: Y Fall risk comments: 6. Patient on Blood Thinner: Warfarin (Coumadin) 7. History of Hypertension: Y 8. Opioid Therapy greater than 6 weeks: Y Opiate Contract Signed: 11/30/17 9. Risk Assessment Tool Provided: 0-LOW RISK 10. Functional Assessment Tool: 11. Recreational Drug Use: Never Drug Type: Tobacco Use: Former Smoker Tobacco Type: Amount or Packs/day: How Many Years: Alcohol Use: No Frequency: Quant:
--- NOTE | 2020-01-16 09:56 | HPC ---
[facility] [place] [address] PAIN MANAGEMENT CONSULTATION Name: TAINA BIRCH Room #: REG SUSHMA ..#: [id number] Admission: 12/26/19 Attend Phys: Deep Morataya MD Discharge: Date of : 50 Report #: [id number] THIS REPORT FOR: cc: Jase Hi MD, Neal A. MD Morgan,Deep Bray MD ~ CC: Jase Morataya DATE OF SERVICE: 12/26/2019 Followup visit for management of intrathecal infusion pump with refill and reprogramming. The patient returns to pain clinic today for refill of his pump. He has a 40 mL pump refilled with 20 mL of medication at his current dose. He has about 4 months of medication infusing. We then refilled his pump today with 20 mL of fentanyl, bupivacaine solution. I also have clonidine in the mixture. He will leave on the same dose. He is doing well. His surgery went fine. He did not have any complications. He does feel it is a little sensitive still, but that should not improve over time. PQRS review is positive for generalized diffuse osteoarthritis involving ankles spine and knees. He is overweight with a BMI of 42.9. Blood pressure is 161/94, heart rate 80, respirations 20, O2 sat 97% on room air. Both of us are wearing masks due to COVID restrictions. Pain intensity is at 5. He has arthritis of the knee, which is an 8/10. The opioids and medications in his pump help both. He needs help walking and standing and uses a cane. He has fallen once in the last 3 months. We discussed measures to be careful and cautious. He is on a blood thinner, Coumadin and is at risk of bleeding a few falls awkwardly. He is also hypertensive. We reviewed all medications. In addition to his pump, I provided him with a small amount of opioid medication that he can take orally, which was helpful in combination with Celebrex and Flexeril, so that he is able to function. His functional assessment score is down to 35. It is much higher when he first came to the clinic in the range of 50. He denies use of tobacco and alcohol. IMPRESSION: 1. Chronic intractable pain with intrathecal infusion pump. 2. Diffuse osteoarthritis and lumbar spondylosis. Also cervicalgia. PROCEDURE: Refill and reprogramming of intrathecal infusion pump. Skin was prepped with ChloraPrep. A 22-gauge non-coring needle advanced in the pump. Old medication removed and discarded. The pump was then refilled with a [facility] [address] [place] [address] PAIN MANAGEMENT CONSULTATION Name: TAINA BIRCH Room #: REG SUSHMA Mackenzie#: [id number] Admission: 12/26/19 Attend Phys: Deep Morataya MD Discharge: Date of : 50 Report #: [id number] combination of fentanyl, bupivacaine and clonidine. Reprogramming session was performed. Old medication was discarded per protocol. Discharge dose is fentanyl 300 mcg a day, bupivacaine 4.4 and clonidine 259.8 mcg a day. Next refill is scheduled in April. Oral medications were sent under terms of our agreement with review of the important aspects of safeguarding medication. <ELECTRONICALLY SIGNED> By: Deep Morataya MD 01/16/20 0956 1721 1853 Deep Morataya MD /nt
== END | disposition home or self-care (01) ==
LOC: PAIN 07:09
PROVIDERS: ATTEND Anesthesiology Pain Medicine
DX: Z45.1 Encounter for adjustment and management of infusion pump (principal); G89.29 Other chronic pain; M47.896 Other spondylosis, lumbar region; M54.2 Cervicalgia; I10 Essential (primary) hypertension; M19.90 Unspecified osteoarthritis, unspecified site; Z79.891 Long term (current) use of opiate analgesic; Z98.890 Other specified postprocedural states; Z79.899 Other long term (current) drug therapy

== ENCOUNTER → 2020-05-04 | Outpatient (CLI) | payer OTHER, MEDICARE ==
[~2020-05-04] VITALS: Ht 170.2 cm; Wt 128.8 kg
[2020-05-04 13:47] VITALS: BP 161/92
== END | disposition home or self-care (01) ==
LOC: PAIN 06:59
PROVIDERS: ATTEND Anesthesiology Pain Medicine
DX: Z45.1 Encounter for adjustment and management of infusion pump (principal); G89.29 Other chronic pain; I10 Essential (primary) hypertension; M19.90 Unspecified osteoarthritis, unspecified site; E66.01 Morbid (severe) obesity due to excess calories; Z68.41 Body mass index [BMI] 40.0-44.9, adult; Z91.040 Latex allergy status; Z87.891 Personal history of nicotine dependence; Z79.01 Long term (current) use of anticoagulants

== ENCOUNTER → 2020-05-21 | Outpatient (CLI) | payer OTHER, MEDICARE | LOC: SJCVC 13:20 | PROVIDERS: ATTEND Internal Medicine Cardiovascular Disease | DX: I25.10 Atherosclerotic heart disease of native coronary artery without angina pectoris (principal); I10 Essential (primary) hypertension; R60.9 Edema, unspecified; E78.00 Pure hypercholesterolemia, unspecified; E66.9 Obesity, unspecified; Z79.82 Long term (current) use of aspirin; Z79.899 Other long term (current) drug therapy; Z87.891 Personal history of nicotine dependence ==

== ENCOUNTER → 2020-09-21 | Outpatient (CLI) | payer OTHER, MEDICARE ==
[~2020-09-21] VITALS: Ht 170.2 cm; Wt 132.4 kg
[~2020-09-21] MED LIST changes: +PREDNISONE 5 MG5 M1 PO
[2020-09-21 10:40] VITALS: BP 129/78
--- NOTE | 2020-09-21 10:50 | NUR ---
Pain Clinic Assessment: 1. History of Osteoarthritis: GENERALIZED B/L ANKLES SPINE B/L KNEES History of Rheumatoid Arthritis: DENIES 2. Height: 5 ft. 7 in. 170.2 cm. Weight: 291.8 lb. oz. 132.360 kg. Patient's BMI: 45.7 3. Vital Signs: BP: 129/78 Pulse: 77 Resp: 18 Temp: 02 Sat: 95 ECG Mon: 4. Pain Intensity: 6 or 7 5. Fall Risk: Dizziness: N Needs help standing or walking: N Fallen in the last 3 months: N Fall risk comments: fell in March and went to ER. Landed on knees on cement and hit his head on the side of the house which bent neck in the area of the pump placement. 6. Patient on Blood Thinner: Warfarin (Coumadin) 7. History of Hypertension: Y 8. Opioid Therapy greater than 6 weeks: Y Opiate Contract Signed: 11/30/17 9. Risk Assessment Tool Provided: 0-LOW RISK 10. Functional Assessment Tool: 50/70 11. Recreational Drug Use: Never Drug Type: Tobacco Use: Former Smoker Tobacco Type: Amount or Packs/day: How Many Years: Alcohol Use: No Frequency: Quant:
== END ==
LOC: PAIN 07:35
PROVIDERS: ATTEND Anesthesiology Pain Medicine
DX: G89.4 Chronic pain syndrome (principal); M19.011 Primary osteoarthritis, right shoulder; M19.012 Primary osteoarthritis, left shoulder; M19.90 Unspecified osteoarthritis, unspecified site; E66.01 Morbid (severe) obesity due to excess calories; I10 Essential (primary) hypertension; M54.16 Radiculopathy, lumbar region; J44.9 Chronic obstructive pulmonary disease, unspecified; Z79.899 Other long term (current) drug therapy; Z79.01 Long term (current) use of anticoagulants; Z87.891 Personal history of nicotine dependence

== ENCOUNTER → 2020-11-19 | Outpatient (CLI) | payer OTHER, MEDICARE ==
[~2020-11-19] VITALS: Ht 170.2 cm; Wt 132.5 kg
[~2020-11-19] MED LIST changes: +NEURONTIN 300M300 M2 PO
[2020-11-19 13:21] VITALS: BP 162/86
== END | disposition home or self-care (01) ==
LOC: PAIN 09:30
PROVIDERS: ATTEND Anesthesiology Pain Medicine
DX: Z45.1 Encounter for adjustment and management of infusion pump (principal); M54.16 Radiculopathy, lumbar region; I10 Essential (primary) hypertension; J44.9 Chronic obstructive pulmonary disease, unspecified; G62.9 Polyneuropathy, unspecified; M19.90 Unspecified osteoarthritis, unspecified site; E66.01 Morbid (severe) obesity due to excess calories; Z98.890 Other specified postprocedural states; Z79.899 Other long term (current) drug therapy; Z79.01 Long term (current) use of anticoagulants; Z87.891 Personal history of nicotine dependence; Z91.040 Latex allergy status; Z68.42 Body mass index [BMI] 45.0-49.9, adult

== ENCOUNTER → 2021-01-11 | Outpatient (CLI) | payer OTHER, MEDICARE ==
[~2021-01-11] VITALS: Ht 170.2 cm; Wt 131.5 kg
[~2021-01-11] MED LIST changes: +CELEBREX 200 M200 M1 PO
[2021-01-11 12:42] VITALS: BP 133/71
--- NOTE | 2021-01-11 12:45 | NUR ---
Pain Clinic Assessment: 1. History of Osteoarthritis: GENERALIZED B/L ANKLES SPINE B/L KNEES History of Rheumatoid Arthritis: DENIES 2. Height: 5 ft. 7 in. 170.2 cm. Weight: 290.0 lb. oz. 131.544 kg. Patient's BMI: 45.4 3. Vital Signs: BP: 133/71 Pulse: 70 Resp: 16 Temp: 02 Sat: 95 ECG Mon: 4. Pain Intensity: 7 5. Fall Risk: Dizziness: N Needs help standing or walking: N Fallen in the last 3 months: N Fall risk comments: fell in March and went to ER. Landed on knees on cement and hit his head on the side of the house which bent neck in the area of the pump placement. 6. Patient on Blood Thinner: Warfarin (Coumadin) 7. History of Hypertension: Y 8. Opioid Therapy greater than 6 weeks: Y Opiate Contract Signed: 11/30/17 9. Risk Assessment Tool Provided: 0-LOW RISK 10. Functional Assessment Tool: 50/70 11. Recreational Drug Use: Never Drug Type: Tobacco Use: Former Smoker Tobacco Type: Amount or Packs/day: How Many Years: Alcohol Use: No Frequency: Quant:
== END ==
LOC: PAIN 11:04
PROVIDERS: ATTEND Clinical Nurse Specialist Adult Health
DX: G89.4 Chronic pain syndrome (principal); G62.9 Polyneuropathy, unspecified; E66.01 Morbid (severe) obesity due to excess calories; Z79.899 Other long term (current) drug therapy; Z79.891 Long term (current) use of opiate analgesic

== ENCOUNTER → 2021-05-24 | Outpatient (CLI) | payer OTHER, MEDICARE ==
[~2021-05-24] VITALS: Ht 170.2 cm; Wt 128.7 kg
[2021-05-24 11:06] VITALS: BP 149/72
--- NOTE | 2021-05-24 11:19 | NUR ---
Pain Clinic Assessment: 1. History of Osteoarthritis: GENERALIZED B/L ANKLES SPINE B/L KNEES History of Rheumatoid Arthritis: DENIES 2. Height: 5 ft. 7 in. 170.2 cm. Weight: 283.8 lb. oz. 128.731 kg. Patient's BMI: 44.4 3. Vital Signs: BP: 149/72 Pulse: 72 Resp: 20 Temp: 02 Sat: 97 ECG Mon: 4. Pain Intensity: 7 5. Fall Risk: Dizziness: N Needs help standing or walking: Y Fallen in the last 3 months: N Fall risk comments: fell in March and went to ER. Landed on knees on cement and hit his head on the side of the house which bent neck in the area of the pump placement. 6. Patient on Blood Thinner: Warfarin (Coumadin) 7. History of Hypertension: Y 8. Opioid Therapy greater than 6 weeks: Y Opiate Contract Signed: 11/30/17 9. Risk Assessment Tool Provided: 0-LOW RISK 10. Functional Assessment Tool: 50/70 11. Recreational Drug Use: Never Drug Type: Tobacco Use: Former Smoker Tobacco Type: Amount or Packs/day: How Many Years: Alcohol Use: No Frequency: Quant:
== END ==
LOC: PAIN 09:59
PROVIDERS: ATTEND Clinical Nurse Specialist Adult Health
DX: G89.29 Other chronic pain (principal); M54.2 Cervicalgia; M54.16 Radiculopathy, lumbar region; J44.9 Chronic obstructive pulmonary disease, unspecified; G62.9 Polyneuropathy, unspecified; E66.9 Obesity, unspecified; Z88.8 Allergy status to other drugs, medicaments and biological substances; Z79.82 Long term (current) use of aspirin; Z79.01 Long term (current) use of anticoagulants; Z79.899 Other long term (current) drug therapy

== ENCOUNTER → 2021-06-03 | Outpatient (CLI) | payer OTHER, MEDICARE | LOC: SJCVC 14:06 | PROVIDERS: ATTEND Internal Medicine Cardiovascular Disease | DX: I49.3 Ventricular premature depolarization (principal); R00.0 Tachycardia, unspecified; R00.8 Other abnormalities of heart beat; I25.10 Atherosclerotic heart disease of native coronary artery without angina pectoris; I10 Essential (primary) hypertension; I26.99 Other pulmonary embolism without acute cor pulmonale; I89.0 Lymphedema, not elsewhere classified; R42 Dizziness and giddiness; D64.9 Anemia, unspecified; E78.00 Pure hypercholesterolemia, unspecified; E03.9 Hypothyroidism, unspecified; K21.9 Gastro-esophageal reflux disease without esophagitis; G47.33 Obstructive sleep apnea (adult) (pediatric); G62.9 Polyneuropathy, unspecified; G25.81 Restless legs syndrome; Z87.891 Personal history of nicotine dependence; Z79.01 Long term (current) use of anticoagulants; Z79.82 Long term (current) use of aspirin; Z79.899 Other long term (current) drug therapy; Z88.8 Allergy status to other drugs, medicaments and biological substances ==

== ENCOUNTER → 2021-06-03 | Outpatient (CLI) | payer OTHER, MEDICARE ==
[~2021-06-03] VITALS: Ht 170.2 cm; Wt 131.7 kg
[2021-06-03 13:17] VITALS: BP 155/84
--- NOTE | 2021-06-03 13:34 | NUR ---
Pain Clinic Assessment: 1. History of Osteoarthritis: GENERALIZED B/L ANKLES SPINE B/L KNEES History of Rheumatoid Arthritis: DENIES 2. Height: 5 ft. 7 in. 170.2 cm. Weight: 290.4 lb. oz. 131.725 kg. Patient's BMI: 45.5 3. Vital Signs: BP: 155/84 Pulse: 47 Resp: 20 Temp: 02 Sat: 97 ECG Mon: 4. Pain Intensity: 7 5. Fall Risk: Dizziness: N Needs help standing or walking: Y Fallen in the last 3 months: Y Fall risk comments: fell in March and went to ER. Landed on knees on cement and hit his head on the side of the house which bent neck in the area of the pump placement. 6. Patient on Blood Thinner: Warfarin (Coumadin) 7. History of Hypertension: Y 8. Opioid Therapy greater than 6 weeks: Y Opiate Contract Signed: 11/30/17 9. Risk Assessment Tool Provided: 0-LOW RISK 10. Functional Assessment Tool: 50/70 11. Recreational Drug Use: Never Drug Type: Tobacco Use: Former Smoker Tobacco Type: Amount or Packs/day: How Many Years: Alcohol Use: No Frequency: Quant:
== END | disposition home or self-care (01) ==
LOC: PAIN 10:56
PROVIDERS: ATTEND Anesthesiology Pain Medicine
DX: Z45.1 Encounter for adjustment and management of infusion pump (principal); M54.16 Radiculopathy, lumbar region; M54.12 Radiculopathy, cervical region; G89.29 Other chronic pain; J44.9 Chronic obstructive pulmonary disease, unspecified; G62.9 Polyneuropathy, unspecified; M19.90 Unspecified osteoarthritis, unspecified site; E66.01 Morbid (severe) obesity due to excess calories; Z79.899 Other long term (current) drug therapy; Z98.890 Other specified postprocedural states; Z91.041 Radiographic dye allergy status; Z87.891 Personal history of nicotine dependence; Z79.01 Long term (current) use of anticoagulants; Z88.8 Allergy status to other drugs, medicaments and biological substances

== ENCOUNTER → 2021-06-21 | Outpatient (CLI) | payer OTHER, MEDICARE | LOC: SJCVCIMAG 06-07 13:58 | PROVIDERS: ATTEND Internal Medicine Cardiovascular Disease | DX: I34.0 Nonrheumatic mitral (valve) insufficiency (principal); I25.10 Atherosclerotic heart disease of native coronary artery without angina pectoris; I10 Essential (primary) hypertension; I26.99 Other pulmonary embolism without acute cor pulmonale; I89.0 Lymphedema, not elsewhere classified; R42 Dizziness and giddiness; I49.3 Ventricular premature depolarization; D64.9 Anemia, unspecified; J44.9 Chronic obstructive pulmonary disease, unspecified; G89.4 Chronic pain syndrome; E11.40 Type 2 diabetes mellitus with diabetic neuropathy, unspecified; K21.9 Gastro-esophageal reflux disease without esophagitis; E03.9 Hypothyroidism, unspecified; E66.9 Obesity, unspecified; G47.33 Obstructive sleep apnea (adult) (pediatric); G25.81 Restless legs syndrome; I47.1 Supraventricular tachycardia; Z87.891 Personal history of nicotine dependence; Z79.82 Long term (current) use of aspirin; Z79.899 Other long term (current) drug therapy; Z88.8 Allergy status to other drugs, medicaments and biological substances ==

== ENCOUNTER → 2021-07-06 | Outpatient (CLI) | payer OTHER, MEDICARE | LOC: SJCVCIMAG 09:39 | PROVIDERS: ATTEND Internal Medicine Cardiovascular Disease | DX: I25.9 Chronic ischemic heart disease, unspecified (principal); I49.3 Ventricular premature depolarization; R00.0 Tachycardia, unspecified; R06.00 Dyspnea, unspecified; R07.89 Other chest pain; I25.10 Atherosclerotic heart disease of native coronary artery without angina pectoris; I10 Essential (primary) hypertension; E78.00 Pure hypercholesterolemia, unspecified; E11.40 Type 2 diabetes mellitus with diabetic neuropathy, unspecified; D64.9 Anemia, unspecified; I49.9 Cardiac arrhythmia, unspecified; J44.9 Chronic obstructive pulmonary disease, unspecified; G89.4 Chronic pain syndrome; E03.9 Hypothyroidism, unspecified; E66.9 Obesity, unspecified; G47.33 Obstructive sleep apnea (adult) (pediatric); I27.20 Pulmonary hypertension, unspecified; G25.81 Restless legs syndrome; K21.9 Gastro-esophageal reflux disease without esophagitis; Z87.891 Personal history of nicotine dependence; Z79.01 Long term (current) use of anticoagulants; Z79.82 Long term (current) use of aspirin; Z79.899 Other long term (current) drug therapy; Z88.8 Allergy status to other drugs, medicaments and biological substances ==

== ENCOUNTER → 2021-07-07 | Outpatient (CLI) | payer OTHER, MEDICARE | LOC: RAD 09:43 | PROVIDERS: ATTEND Internal Medicine | DX: J44.9 Chronic obstructive pulmonary disease, unspecified (principal); R06.02 Shortness of breath; I51.7 Cardiomegaly; J98.11 Atelectasis ==

== ENCOUNTER → 2021-07-15 | Outpatient (CLI) | payer OTHER, MEDICARE ==
[~2021-07-15] MED LIST changes: +BENICAR40 MG PO; +BONIVA150 MG PO; +DUTASTERIDE0.5 MG PO; +NITROSTAT0.4 MG SUBLING; +OXYBUTYNIN 5 MG5 M2 PO
[2021-07-15 10:23] VITALS: BP 136/83
--- NOTE | 2021-07-15 15:17 | CATHLAB ---
[facility] [address] [place] [address] INVASIVE PROCEDURE REPORT Name: TAINA BIRCH Room #: REG SUSHMA Rubi.#: [id number] Admission: 07/15/21 Attend Phys: Deonte Suarez MD Discharge: Date of : 50 Report #: [id number] THIS REPORT FOR: cc: Jase Hi MD, Neal A. MD Park, Jin S. MD ~ APPROVED REPORT Study performed: 07/15/2021 12:00:23 Patient Details Patient Status: Out-Patient Room #: The patient is a 70 year-old male Event Personnel Deonte Suarez Candy Depositing Machine Operator, Sharron Dowd RN RN, Rebecca Hoyos RTR Monitor, Keisha John Partnoy, Nancy RTR, TUB ATTENDANT Monitor Procedures Performed Art Access - R radial artery Left Heart Cath w/or w/o Coronaries [id number] [facility] [address] Initial Mod Sed Same Phys/QHP Gr5y [id number] Hemostasis with Hemoband Indication Dyspnea, Unstable angina , Positive stress test, Chest pain Risk Factors Obesity, Chronic Lung DiseaseHypercholesterolemiaPhysical Activity, Coronary Artery DiseaseHypertension Procedure Narrative The Right Wrist^ was infiltrated with 1% Lidocaine subcutaneous anesthesia. A TRANSRADIAL SLENDER 6F GLIDESHEATH KIT #[id number] sheath was inserted into the Right radial artery. Coronary angiography was performed using coronary diagnostic catheters. The right coronary system was accessed and visualized with a JR4 catheter. The left coronary system was accessed and visualized with a 5FR JL4 #[id number] catheter. The left ventricle was accessed and visualized with a JR4 catheter. Left ventricular/Aortic Valve gradient assessed via catheter pullback. Closure device was deployed with a Fr VASC BAND XL 29CM #[id number]. The patient tolerated the procedure well and there were no complications associated with the procedure. There was no hematoma. [facility] [address] [place] [address] INVASIVE PROCEDURE REPORT Name: TAINA BIRCH [facility] #: [facility] [id number] Admission: 07/15/21 Attend Phys: Deonte Suarez MD Discharge: Date of : 50 Report #: [id number] Intraoperative Conscious Sedation Sedation start time: 12:12 Case end Time: 12:40 Fentanyl 50 mcg Versed 1 mg Fluoro Time: 3.60 minutes Dose: DAP 9626.90 cGycm2 1208 mGy Contrast Type and Amount: Omnipaque 45 ml Coronary Angiography The patient's coronary anatomy is right dominant. Diagnostic Cath Left Main The left main artery is a large-caliber vessel, with no flow-limiting lesions. LAD The LAD is a moderate-sized caliber vessel, traverses the anterior wall and wraps around the apex. There is mild diffuse disease in the proximal segment, 30%. Diagonal 1 There is a moderate-sized caliber vessel with a mild ostial stenosis, 30%. Diagonal 2 There is a small to moderate-sized caliber vessel, with no flow-limiting lesions. Circumflex The left circumflex artery is a moderate-sized caliber vessel, patent with no flow-limiting lesions. OM1 This is a moderate-sized caliber vessel with mild disease proximally, 30%. OM2 This is a small to moderate-sized caliber vessel, with no flow-limiting lesions. Right Coronary The RCA is a dominant vessel with mild diffuse disease in the proximal segment, 30%. R PDA This is a moderate-sized caliber vessel, patent with no flow-limiting lesions. RPLV This is a small to moderate-sized caliber vessel, with no flow-limiting lesions. Left Ventriculography Left Ventriculography was not performed. Ejection Fraction was 50% based off patient's Nuclear Cardiac Stress Test. An LVEDP was measured and there is no gradient across the outflow tract. Hemodynamics The aortic pressure is 127/73 mmHg with a mean of 86 mmHg. The left ventricular pressure is 143/1 mmHg with a mean of mmHg. The left ventricular end diastolic pressure is 11 mmHg. [facility] [address] [place] [address] INVASIVE PROCEDURE REPORT Name: TAINA BIRCH Room #: REG [facility]#: [id number] Admission: 07/15/21 Attend Phys: Deonte Suarez MD Discharge: Date of : 50 Report #: [id number] Conclusion 1. There is mild, nonobstructive disease in the proximal LAD, first diagonal artery, OM1 and RCA. 2. There is normal LV systolic function. 3. This is a right dominant system. 4. Recommend guideline directed medical therapy. <ELECTRONICALLY SIGNED> By: Deonte Suarez MD 07/15/21 1517 151 151 Deonte Suarez MD /INF
== END | disposition home or self-care (01) ==
LOC: CATH 07:54
PROVIDERS: ATTEND Internal Medicine Cardiovascular Disease
DX: R07.9 Chest pain, unspecified (principal); I25.110 Atherosclerotic heart disease of native coronary artery with unstable angina pectoris; R94.39 Abnormal result of other cardiovascular function study; R06.00 Dyspnea, unspecified; I10 Essential (primary) hypertension; J44.9 Chronic obstructive pulmonary disease, unspecified; E78.00 Pure hypercholesterolemia, unspecified; E66.9 Obesity, unspecified; E78.5 Hyperlipidemia, unspecified; E11.40 Type 2 diabetes mellitus with diabetic neuropathy, unspecified; E03.9 Hypothyroidism, unspecified; G47.33 Obstructive sleep apnea (adult) (pediatric); K21.9 Gastro-esophageal reflux disease without esophagitis; I73.9 Peripheral vascular disease, unspecified; Z98.890 Other specified postprocedural states; Z79.899 Other long term (current) drug therapy; Z86.718 Personal history of other venous thrombosis and embolism; Z79.01 Long term (current) use of anticoagulants; Z82.49 Family history of ischemic heart disease and other diseases of the circulatory system; Z90.49 Acquired absence of other specified parts of digestive tract

== ENCOUNTER → 2021-07-19 | Outpatient (CLI) | payer OTHER, MEDICARE ==
[~2021-07-19] VITALS: Ht 170.2 cm; Wt 129.9 kg
[2021-07-19 11:16] VITALS: BP 162/77
--- NOTE | 2021-07-19 11:18 | NUR ---
Pain Clinic Assessment: 1. History of Osteoarthritis: GENERALIZED B/L ANKLES SPINE B/L KNEES History of Rheumatoid Arthritis: DENIES 2. Height: 5 ft. 7 in. 170.2 cm. Weight: 286.4 lb. oz. 129.911 kg. Patient's BMI: 44.8 3. Vital Signs: BP: 162/77 Pulse: 57 Resp: 16 Temp: 02 Sat: 95 ECG Mon: 4. Pain Intensity: 7-8 5. Fall Risk: Dizziness: N Needs help standing or walking: Y Fallen in the last 3 months: N Fall risk comments: fell in March and went to ER. Landed on knees on cement and hit his head on the side of the house which bent neck in the area of the pump placement. 6. Patient on Blood Thinner: Warfarin (Coumadin) 7. History of Hypertension: Y 8. Opioid Therapy greater than 6 weeks: Y Opiate Contract Signed: 11/30/17 9. Risk Assessment Tool Provided: 0-LOW RISK 10. Functional Assessment Tool: 50/70 11. Recreational Drug Use: Never Drug Type: Tobacco Use: Never Smoker Tobacco Type: Amount or Packs/day: How Many Years: Alcohol Use: No Frequency: Quant:
== END ==
LOC: PAIN 10:32
PROVIDERS: ATTEND Clinical Nurse Specialist Adult Health
DX: G89.29 Other chronic pain (principal); M54.2 Cervicalgia; M54.50 Low back pain, unspecified; E66.01 Morbid (severe) obesity due to excess calories; M54.16 Radiculopathy, lumbar region; M54.12 Radiculopathy, cervical region; G62.9 Polyneuropathy, unspecified; Z88.8 Allergy status to other drugs, medicaments and biological substances; Z79.82 Long term (current) use of aspirin; Z79.01 Long term (current) use of anticoagulants